=== PATIENT | female | born 2005 | race Caucasian/White ===

== ENCOUNTER 2024-03-11 22:35 | Emergency (ER) | payer OTHER, SELFPAY ==
[2024-03-11 22:36] VITALS: BP 129/80; PULSE 105; RESP 18; TEMP 37; O2SAT 98; BMI 48.8
--- NOTE | 2024-03-11 22:44 | CT_ITS ---
PROCEDURE INFORMATION: Exam: CT Abdomen And Pelvis With Contrast Exam date and time: 03/11/2024 11:33 PM Age: 18 years old Clinical indication: Abdominal pain; Acute; Additional info: Acute abdominal pain TECHNIQUE: Imaging protocol: Computed tomography of the abdomen and pelvis with contrast. Total images: 352 Radiation optimization: All CT scans at this facility use at least one of these dose optimization techniques: automated exposure control; mA and/or kV adjustment per patient size (includes targeted exams where dose is matched to clinical indication); or iterative reconstruction. Contrast material: ISOVUE; Contrast volume: 75 ml; Contrast route: IV; COMPARISON: No relevant prior studies available. FINDINGS: Lungs: Minor bibasilar atelectasis. No concerning infiltrate. Heart: Normal heart size. Liver: Normal. No mass. Gallbladder and bile ducts: Contracted gallbladder. No calcified gallstones. No bile duct dilatation. Pancreas: Normal. No ductal dilation. Spleen: Normal. No splenomegaly. Adrenal glands: Normal. No mass. Kidneys and ureters: No hydronephrosis, nephrolithiasis, or renal mass. Stomach and bowel: Mild gastric distension with recently ingested content. Unremarkable duodenum. No ileus or bowel obstruction. Small bowel appears within normal limits. Submucosal fat deposition within the wall of the ascending colon compatible with remote/chronic disease. Unremarkable rectum. Focal mild wall thickening the sigmoid colon without surrounding inflammatory change. Appendix: Normal appendix. Intraperitoneal space: No ascites. No free air. Vasculature: Abdominal aorta is normal in caliber. Major abdominal vessels enhance appropriately. Lymph nodes: Small benign-appearing bilateral inguinal and femoral lymph nodes. Prominent right lower quadrant mesenteric lymph nodes implying mesenteric adenitis. Normal appendix. Urinary bladder: Collapsed bladder. Reproductive: Physiologic uterus and ovaries. Small quantity free pelvic fluid. Bones/joints: Attenuation artifact limiting bone detail. No acute osseous abnormality. Soft tissues: Diastasis of the rectus fascia. Small fat containing umbilical hernia. IMPRESSION: 1. Focal mild wall thickening of the sigmoid colon without surrounding inflammatory change. This may reflect incomplete distension however cannot exclude minor colitis. No complicating features. 2. Small quantity free pelvic fluid is considered physiologic. 3. Normal appendix. 4. Mesenteric adenitis.
--- NOTE | 2024-03-11 22:44 | ED_ITS ---
<Statement entered by Gianluca Blevins MD - 03/11/24 23:09> I was consulted by the BRIAN, and we discussed the complexity of the problems being addressed. I approved the treatment and management plan for this patient's care in the emergency department, thus performing a substantive portion of the medical decision making. Gianluca Blevins MD Discharge Plan Disposition Patient Disposition: Home, Self-Care Chief Complaint: Urogenital-Female Prescriptions Prescriptions: No Action famotidine 20 mg tablet 20 mg PO Patient Comments: TAKE 1 TABLET BY MOUTH EVERY 12 HOURS FOR 10 DAYS Nexplanon 68 mg implant SUBDERMAL Referrals Follow up/Referrals: Provider,Referral, [Primary Care Provider] - See instructions Activity Restrictions/Add. Instructions Additional Instructions/Restrictions: Please follow-up with your primary care provider. Please return to the emergency department if you develop any new or worsening symptoms or become concerned for your health. Please take Tylenol and ibuprofen as needed for pain. Clinical Impressions Clinical Impression: Acute mesenteric adenitis Stand Alone Forms Stand Alone Forms: Work/School Release Instructions Patient Instructions: DI for Urinary Tract Infection (UTI) Discharge ED Provider: Neel Smith General Adult HPI <JERARDO Robison - Last Filed: 03/11/24 22:51> General Chief complaint: Urogenital-Female Stated complaint: abd pain, unable to urinate Time Seen by Provider: 03/11/24 22:39 History of Present Illness HPI narrative: Patient presents for evaluation of acute abdominal pain. Patient states that her pain began abruptly this evening. She reports it is difficult to void. She is never had anything like this before. She states that the pain is located in the suprapubic area and does not radiate. She denies any vaginal discharge and she is not currently on her period denies chest pain shortness of breath fever chills hemoptysis hematochezia melena nausea vomiting or diarrhea Related Data Home Medications Medication Instructions Recorded Confirmed etonogestrel 68 mg subdermal subdermal 02/13/22 02/13/22 implant (Nexplanon) famotidine 20 mg tablet 20 mg PO 02/13/22 02/13/22 Allergies Allergy/AdvReac Type Severity Reaction Status Date / Time No Known Allergies Allergy Verified 02/13/22 14:42 PFSH <JERARDO Robison - Last Filed: 03/11/24 22:51> PFSH Disclaimer: The information contained in this section may have been updated after the patient was seen, as this information can be updated by other users. Social History Smoking Status: Current every day smoker alcohol intake: never current occupational status: student Travel in the last 8 weeks: None <JERARDO Robison - Last Filed: 03/11/24 22:51> ROS Obtained: Yes Systems reviewed as appropriate & no additional complaints except as documented Physical Exam <JERARDO Robison - Last Filed: 03/11/24 22:51> General General appearance: alert and in no apparent distress Respiratory Respiratory exam: Present normal lung sounds bilaterally Cardiovascular Cardiovascular exam: Present regular rate and normal rhythm Abdominal Exam Abdominal exam: Present soft (Obese), tenderness (Tenderness in the suprapubic area) and normal bowel sounds; Absent guarding, rebound or rigidity Back Exam Back exam: Absent CVA tenderness (R) or CVA tenderness (L) Neurological Exam Neurological exam: Present alert and oriented X3 Medical Decision Making <JERARDO Robison - Last Filed: 03/11/24 22:51> Medical Records Medical records reviewed: Yes I reviewed the patient's medical records. Velasquez Inquiry Pt receiving controlled substance: No Vital Signs: 03/11/24 22:36 Temperature 98.6 F Temperature Source Oral Pulse Rate [Left] 105 H Respiratory Rate 18 Blood Pressure [Right Arm] 129/80 Blood Pressure Mean [Right Arm] 96 Blood Pressure Source [Right Arm] Automatic Cuff Blood Pressure Position [Right Arm] Sitting 02 Sat by Pulse Oximetry 98 Oxygen Delivery Method Room Air Lab Data Lab results reviewed: Yes I reviewed the patient's lab results. Lab Results 03/11/24 22:44: Urine Color Yellow, Urine Appearance Clear, Urine pH 6.0, Ur Specific Dewitt >= 1.030, Urine Protein Negative, Urine Glucose (UA) Negative, Urine Ketones Negative, Urine Blood Negative, Urine Nitrate Negative, Urine Bilirubin Negative, Urine Urobilinogen 1.0, Ur Leukocyte Esterase Negative, Urine RBC 3-5, Urine WBC Occasional, Ur Squamous Epith Cells Occasional, Urine Bacteria Trace 03/11/24 22:51: WBC 10.9, RBC 4.76, Hgb 14.0, Hct 41.6, MCV 87.3, MCH 29.5, MCHC 33.8, RDW 14.8, Plt Count 256, MPV 8.5, Neut % (Auto) 79.7, Lymph % (Auto) 14.8, [place] % (Auto) 3.9, Eos % (Auto) 1.2, Baso % (Auto) 0.3, Neut # (Auto) 8.7 H, Lymph # (Auto) 1.6, [place] # (Auto) 0.4, Eos # (Auto) 0.1, Baso # (Auto) 0.0, Sodium 139, Potassium 3.9, Chloride 102, Carbon Dioxide 28, Anion Gap 12.9, BUN 10, Creatinine 0.90, Estimated Creat Clear 72, Estimated GFR 81, Est GFR ( Amer) 98, Glucose 92, Calcium 8.9, Total Bilirubin 0.9, AST 28, ALT 28, Alkaline Phosphatase 74, Total Protein 7.7, Albumin 4.1, Globulin 3.6 H, Albumin/Globulin Ratio 1.1, Serum HCG, Qual Negative 03/11/24 22:51 03/11/24 22:51 Orders (Tests/Meds): ED MEDICATIONS Generic Name Dose Route Start Last Admin Trade Name Freq PRN Reason Stop Dose Admin Sodium Chloride 10 ml 03/11/24 23:30 03/11/24 23:35 Sodium Chloride 0.9% 10ml Syr (Rad Only) IV 04/10/24 23:29 10 ml NEEDED PRN Administration Maintain IV Site Discontinued Medications Generic Name Dose Route Start Last Admin Trade Name Freq PRN Reason Stop Dose Admin Acetaminophen 1,000 mg 03/11/24 22:44 03/11/24 22:55 Acetaminophen 1,000mg/100ml Vial IV 03/11/24 22:45 1,000 mg ONCE ONE Administration Lactated Ringer's 1,000 mls @ 999 mls/hr 03/11/24 22:44 03/11/24 22:56 Lactated Ringer's 1000 Ml Bag IV 03/11/24 23:44 999 mls/hr .Q1H1M ONE Administration Iopamidol 75 ml 03/11/24 23:30 03/11/24 23:35 Iopamidol-370 (76%);100ml Bottle IV 03/11/24 23:31 75 ml ONCE ONE Administration Ketorolac Tromethamine 15 mg 03/11/24 22:44 03/11/24 22:55 Ketorolac 30mg/Ml Vial IV 03/11/24 22:45 15 mg ONCE ONE Administration ORDERS Category Date Time Status CT abdomen pelvis w con Stat Cat Scan 03/11/24 22:44 Completed CBC w/Auto Diff [Complete Blood Count Auto Diff] Stat Lab 03/11/24 22:51 Completed CMP [Comprehensive Metabolic Panel] Stat Lab 03/11/24 22:51 Completed HCG Qualitative, Serum Stat Lab 03/11/24 22:51 Completed UA [Urinalysis and Microscopic] Stat Lab 03/11/24 22:44 Completed Medical Decision Narrative: In summary patient is a 18-year-old female who presents to the emergency department for evaluation of abdominal pain and dysuria. Patient is hemodynamically stable upon arrival, afebrile. Physical exam is remarkable for lower quadrant/suprapubic pain to palpation with negative CVA tenderness to percussion bilaterally no tenderness over McBurney's point. Differential diagnosis includes cystitis versus urinary tract infection versus vaginitis versus constipation versus kidney stone versus appendicitis versus ovarian torsion etc. Initial workup will be conducted with hematologic labs CT scan abdomen pelvis urinalysis continuous cardiac monitoring and pulse oximetry. Initial interventions include crystalloid bolus Toradol Tylenol. Initial workup started and pending at the time of handoff to Dr. Smith at 2300 hrs. <Neel Smith MD - Last Filed: 03/12/24 00:53> Vital Signs: 03/11/24 22:36 Temperature 98.6 F Temperature Source Oral Pulse Rate [Left] 105 H Respiratory Rate 18 Blood Pressure [Right Arm] 129/80 Blood Pressure Mean [Right Arm] 96 Blood Pressure Source [Right Arm] Automatic Cuff Blood Pressure Position [Right Arm] Sitting 02 Sat by Pulse Oximetry 98 Oxygen Delivery Method Room Air Lab Data Lab Results 03/11/24 22:44: Urine Color Yellow, Urine Appearance Clear, Urine pH 6.0, Ur Specific Dewitt >= 1.030, Urine Protein Negative, Urine Glucose (UA) Negative, Urine Ketones Negative, Urine Blood Negative, Urine Nitrate Negative, Urine Bilirubin Negative, Urine Urobilinogen 1.0, Ur Leukocyte Esterase Negative, Urine RBC 3-5, Urine WBC Occasional, Ur Squamous Epith Cells Occasional, Urine Bacteria Trace 03/11/24 22:51: WBC 10.9, RBC 4.76, Hgb 14.0, Hct 41.6, MCV 87.3, MCH 29.5, MCHC 33.8, RDW 14.8, Plt Count 256, MPV 8.5, Neut % (Auto) 79.7, Lymph % (Auto) 14.8, [place] % (Auto) 3.9, Eos % (Auto) 1.2, Baso % (Auto) 0.3, Neut # (Auto) 8.7 H, Lymph # (Auto) 1.6, [place] # (Auto) 0.4, Eos # (Auto) 0.1, Baso # (Auto) 0.0, Sodium 139, Potassium 3.9, Chloride 102, Carbon Dioxide 28, Anion Gap 12.9, BUN 10, Creatinine 0.90, Estimated Creat Clear 72, Estimated GFR 81, Est GFR ( Amer) 98, Glucose 92, Calcium 8.9, Total Bilirubin 0.9, AST 28, ALT 28, Alkaline Phosphatase 74, Total Protein 7.7, Albumin 4.1, Globulin 3.6 H, Albumin/Globulin Ratio 1.1, Serum HCG, Qual Negative Orders (Tests/Meds): ED MEDICATIONS Generic Name Dose Route Start Last Admin Trade Name Freq PRN Reason Stop Dose Admin Sodium Chloride 10 ml 03/11/24 23:30 03/11/24 23:35 Sodium Chloride 0.9% 10ml Syr (Rad Only) IV 04/10/24 23:29 10 ml NEEDED PRN Administration Maintain IV Site Discontinued Medications Generic Name Dose Route Start Last Admin Trade Name Freq PRN Reason Stop Dose Admin Acetaminophen 1,000 mg 03/11/24 22:44 03/11/24 22:55 Acetaminophen 1,000mg/100ml Vial IV 03/11/24 22:45 1,000 mg ONCE ONE Administration Lactated Ringer's 1,000 mls @ 999 mls/hr 03/11/24 22:44 03/11/24 22:56 Lactated Ringer's 1000 Ml Bag IV 03/11/24 23:44 999 mls/hr .Q1H1M ONE Administration Iopamidol 75 ml 03/11/24 23:30 03/11/24 23:35 Iopamidol-370 (76%);100ml Bottle IV 03/11/24 23:31 75 ml ONCE ONE Administration Ketorolac Tromethamine 15 mg 03/11/24 22:44 03/11/24 22:55 Ketorolac 30mg/Ml Vial IV 03/11/24 22:45 15 mg ONCE ONE Administration ORDERS Category Date Time Status CT abdomen pelvis w con Stat Cat Scan 03/11/24 22:44 Completed CBC w/Auto Diff [Complete Blood Count Auto Diff] Stat Lab 03/11/24 22:51 Completed CMP [Comprehensive Metabolic Panel] Stat Lab 03/11/24 22:51 Completed HCG Qualitative, Serum Stat Lab 03/11/24 22:51 Completed UA [Urinalysis and Microscopic] Stat Lab 03/11/24 22:44 Completed Medical Decision Narrative: In summary patient is a 18-year-old female who presents to the emergency department for evaluation of abdominal pain and dysuria. Patient is hemodynamically stable upon arrival, afebrile. Physical exam is remarkable for lower quadrant/suprapubic pain to palpation with negative CVA tenderness to percussion bilaterally no tenderness over McBurney's point. Differential diagnosis includes cystitis versus urinary tract infection versus vaginitis versus constipation versus kidney stone versus appendicitis versus ovarian torsion etc. Initial workup will be conducted with hematologic labs CT scan abdomen pelvis urinalysis continuous cardiac monitoring and pulse oximetry. Initial interventions include crystalloid bolus Toradol Tylenol. Initial workup started and pending at the time of handoff to Dr. Smith at 2300 hrs. Sarah BHATIA: I assumed care of the patient at the time of handoff from the prior provider. On reassessment patient reports symptomatic improvement. Laboratory results show no leukocytosis, no significant electrolyte derangement, normal renal function, negative test. Urinalysis is not consistent with infection. CT imaging independently interpreted by me shows prominent mesenteric lymph nodes within normal appendix, unremarkable ovaries, no kidney stones. Interactive discussion was had with the patient regarding her presentation. At this time her presentation is most consistent with mesenteric adenitis. Patient was discharged in stable condition with return precautions and instructions regarding symptomatic care. I was consulted by the BRIAN, and we discussed the complexity of the problems being addressed. I approved the treatment and management plan for this patient?s care in the Emergency Department, thus performing a substantive portion of the medical decision making. Neel Smith MD Critical Care <JERARDO Robison - Last Filed: 03/11/24 22:51> Critical Care Time Critical Care Time: No
[2024-03-11 22:49] LABS: Microscopic, Urine URINE MICROSCOPIC (MICROSCOPIC)
[2024-03-11] MEDS: ACETAMINOPHEN 1,000MG/100ML VIAL 1000 MG IV (22:55)
[2024-03-11] MEDS: KETOROLAC 30MG/ML VIAL 15 MG IV (22:55)
[2024-03-11] MEDS: LACTATED RINGERS 1000ML 1,000 ML 999 ML IV (22:56)
[2024-03-11 22:59] LABS: Appearance,Urine CLEAR (Clear); Bilirubin,Urine Negative (Negative); Blood, Urine Negative (Negative); Color,Urine YELLOW (Yellow); Glucose,Urine (UA) Negative (Negative); Ketones,Urine Negative (Negative); Leukocyte Esterase,Urine Negative (Negative); Nitrate,Urine Negative (Negative); Protein,Urine Negative (Negative); Specific Gravity, Urine >= 1.030 (1.005-1.030)
[2024-03-11 23:00] LABS: Basophils % 0.3 % (0.1-2.0); Eosinophils # 0.1 K/mm3 (0.0-0.4); Eosinophils % 1.2 % (0.1-12.0); Hematocrit 41.6 % (37.0-47.0); Lymphocytes # 1.6 K/mm3 (0.7-4.5); Lymphocytes % 14.8 % (10-50); Mean Corpuscular HGB Conc 33.8 g/dL (31.8-35.4); Mean Corpuscular Hemoglobin 29.5 pg (27.0-31.2); Mean Corpuscular Volume 87.3 fl (81-99); Mean Platelet Volume 8.5 fl (7.4-10.4); Monocytes # 0.4 K/mm3 (0.1-1.0); Monocytes % 3.9 % (1.7-9.3); Neutrophils # 8.7 K/mm3 (1.8-7.8); Neutrophils % 79.7 % (37.0-80.0); Platelet Count 256 K/mm3 (142-424); Red Blood Count 4.76 M/mm3 (4.20-5.40); Red Cell Distribution Width 14.8 % (11.5-17.5); White Blood Count 10.9 K/mm3 (4.5-13.0)
[2024-03-11 23:11] LABS: Bacteria,Urine Trace /lpf; Squamous Epithelial Cell,Urine Occasional #/hpf (0-5); WBC,Urine Occasional #/hpf (0-3)
[2024-03-11 23:16] LABS: Chloride 102 mmol/L (98-107); Potassium 3.9 mmoL/L (3.5-5.1); Sodium 139 mmol/L (136-145)
[2024-03-11 23:19] LABS: Alanine Aminotransferase 28 U/L (12-78); Albumin Level 4.1 g/dl (3.5-5.0); Albumin/Globulin Ratio 1.1 (1.1-1.8); Alkaline Phosphatase 74 U/L (38-126); Anion Gap 12.9 mEq/L (5-15); Aspartate Amino Transferase 28 U/L (14-36); Bilirubin,Total 0.9 mg/dl (0.2-1.3); Blood Urea Nitrogen 10 mg/dl (7-17); Calcium 8.9 mg/dl (8.4-10.2); Carbon Dioxide 28 mmol/L (22.0-30.0); Creatinine Clearance Estimated 72 mL/min (50-200); Estimated Glomerular Filt Rate 81 ml/min (>60); GFR (African American) 98 ML/MIN (>60); Globulin 3.6 g/dL (1.3-3.2); Glucose 92 mg/dl (74-100); Total Protein,Serum 7.7 g/dl (6.3-8.2)
[2024-03-11 23:22] LABS: HCG Qualitative, Serum Negative (Negative)
[2024-03-11] MEDS: IOPAMIDOL-370 (76%);100ML BOTTLE 75 ML IV (23:35)
[2024-03-11] MEDS: SODIUM CHLORIDE 0.9% 10ML SYR (RAD ONLY) 10 ML IV (23:35)
[2024-03-12 00:52] VITALS: BP 119/73; PULSE 78; RESP 18; TEMP 37; O2SAT 97
== END 2024-03-12 00:52 | disposition home or self-care (01) ==
PROVIDERS: Physician Assistant; Emergency Provider Emergency Medicine
DX: I88.0 Nonspecific mesenteric lymphadenitis (principal); R10.30 Lower abdominal pain, unspecified; F17.210 Nicotine dependence, cigarettes, uncomplicated
CPT/HCPCS: 74177; 80053; 81001; 84703; 85025; 96361; 96374; 96375; 99284; J0131; J7120; Q9967

== ENCOUNTER 2024-10-21 09:13 | Emergency (ER) | payer OTHER, SELFPAY ==
[2024-10-21] VITALS (12 sets, daily range): BP systolic 117–205; BP diastolic 63–175; PULSE 66–113; RESP 14–16; TEMP 36.5–36.6; O2SAT 82–97; BMI 51.1
[2024-10-21 10:13] LABS: Microscopic, Urine URINE MICROSCOPIC (MICROSCOPIC)
[2024-10-21] MEDS: IBUPROFEN 600 MG TABLET PO (10:15)
[2024-10-21] MEDS: DEXAMETHASONE 4MG TABLET 10 MG PO (10:15)
[2024-10-21] MEDS: ACETAMINOPHEN 500MG TAB 1000 MG PO (10:15)
[2024-10-21] MEDS: METHOCARBAMOL 500MG TABLET 1500 MG PO (10:16)
[2024-10-21] MEDS: LIDOCAINE 5% TRANSDERMAL PATCH 1 EACH TP (10:16)
[2024-10-21 10:22] LABS: Appearance,Urine CLEAR (Clear); Bilirubin,Urine Negative (Negative); Blood, Urine Negative (Negative); Color,Urine YELLOW (Yellow); Glucose,Urine (UA) Negative (Negative); Ketones,Urine Negative (Negative); Leukocyte Esterase,Urine Negative (Negative); Nitrate,Urine Negative (Negative); PH,Urine 5.5 (5.0-8.5); Protein,Urine Negative (Negative); Specific Gravity, Urine >= 1.030 (1.005-1.030); Urobilinogen,Urine 0.2 EU/dl (0.2)
--- NOTE | 2024-10-21 10:24 | HMH.EDGENADL ---
Discharge Plan Disposition Patient Disposition: Home, Self-Care Prescriptions Prescriptions: New prednisone 20 mg tablet 40 mg PO DAILY 5 Days Qty: 10 0RF methocarbamol 750 mg tablet 1,500 mg PO TID 5 Days Qty: 30 0RF lidocaine 5 % adhesive patch,medicated 1 patch topical DAILY Qty: 30 0RF Rx Instructions: leave on most painful area for up to 12 hrs No Action metronidazole 500 mg tablet 500 mg PO BID 7 Days Qty: 14 0RF Referrals Follow up/Referrals: Bartolo Ordaz MD [Staff Physician] - See instructions Heena Cash PA [Primary Care Provider] - See instructions Activity Restrictions/Add. Instructions Additional Instructions/Restrictions: Call your family doctor to establish care for this visit to the emergency department and schedule follow-up within 48 hours to ensure improvement. If you have any worsening of your condition or any other concerning signs or symptoms, return to the emergency department or your primary care doctor for further evaluation. Call Dr. Ordaz's office in order to schedule follow-up. Steroid each morning for the next 5 days. Clinical Impressions Clinical Impression: Acute lumbar radiculopathy Stand Alone Forms Stand Alone Forms: Work/School Release Instructions Patient Instructions: DI for Low Back Pain Print Language Print Language: Albanian Discharge ED Provider: Regino Murphy General Adult HPI General Chief complaint: Back Pain/Injury Stated complaint: back pain, no accident Time Seen by Provider: 10/21/24 09:23 Mode of Arrival: Ambulatory Source of Information: Patient Limitations: No Limitations Description of Symptoms (Recalled from ER Triage Doc. by RN): pt states she has chronic back pain and was told by her chiropracter that she has a pinched nerve and slipped disc. pt states she is having bilateral lower back pain that radiates medially and proximal. pt states her pain has been worse over the last 2d. pt states her pain is a 7/10 and shooting in nature. pt has not taken anything for the pain today. pt denies urinary symptoms, SOA, or N/V/D. History of Present Illness HPI narrative: Please note that above description of symptoms, in this electronic medical record under categorization of recalled from ER triage doctor by RN are reflective of an initial nursing assessment, however, is not reflective of my full history and physical exam that was personally taken and clarified. Consequentially, this preceding description of symptoms, which may include the patient's categorized chief complaint in the EMR, do not reflect my personal clinical impression, and the ultimate description of history of present illness and patient stated complaints should be deferred to this section of the note. Unless stated otherwise or congruent with this section of the note, additional signs, symptoms, or incongruence should be interpreted as inaccurate with my clinical impression. Related Data Previous Rx's ?Medication ?Instructions ?Recorded metronidazole 500 mg tablet 500 mg PO BID 7 days #14 tabs 08/17/24 lidocaine 5 % topical patch 1 patch topical DAILY #30 ea 10/21/24 methocarbamol 750 mg tablet 1,500 mg (2 x 750 mg) PO TID 5 10/21/24 days #30 tabs prednisone 20 mg tablet 40 mg (2 x 20 mg) PO DAILY 5 days 10/21/24 #10 tabs Allergies Allergy/AdvReac Type Severity Reaction Status Date / Time No Known Allergies Allergy Verified 10/21/24 09:35 [facility] Disclaimer: The information contained in this section may have been updated after the patient was seen, as this information can be updated by other users. Medical History (Updated 10/21/24 @ 11:15 by Regino Murphy MD) Vaginal discharge Dyspareunia No significant medical problems Surgical History (Updated 08/12/24 @ 15:26 by CONNER Jamison) No history of previous surgery Family History (Updated 08/12/24 @ 15:28 by CONNER Jamison) Other Cancer Diabetes FHx: mental illness Hypertension Substance abuse Thyroid disorder Social History Smoking Status: Current every day smoker alcohol intake: never current occupational status: student Travel in the last 8 weeks: None Have you lived/traveled outside US in past 30 days?: No Contact w/someone who lives/traveled outside US past 30 days?: No Exposure to someone with infectious disease in past 14 days?: No Do you have a fever (greater than 100.4 F or 38 C)?: No Have you tested positive for COVID-19: No Exposed to someone with COVID-19 in past 14 days?: No Do you have a sore throat?: No Do you have a cough?: No Do you have any weakness?: No Do you have any diarrhea?: No Are you experiencing any unusual bleeding?: No Do you have any muscle aches/pain?: No Do you have any abdominal pain?: No Are you experiencing loss of taste or smell?: No Other Medical History Have you received the Flu Vaccine for this season: Yes Have you received the Pneumonia Vaccine: No ROS Obtained: Yes All systems reviewed & no additional complaints except as documented Physical Exam General General appearance: alert, in distress (Mild distress secondary to pain. Seems to be spasming) and obese Head Head exam: atraumatic and normocephalic Eye Eye exam: Present normal appearance, PERRL and EOMI Neck Neck exam: Present normal inspection, full ROM and trachea midline Respiratory Respiratory exam: Absent respiratory distress, wheezes, stridor, accessory muscle use or prolonged expiratory phase Cardiovascular Cardiovascular exam: Present other (Pulses equal symmetric in upper and lower extremities) Abdominal Exam Abdominal exam: Present soft; Absent distention, tenderness or pulsatile mass Extremities Exam Extremities exam: Absent edema Back Exam Back exam: Present tenderness, paraspinal tenderness and vertebral tenderness Neurological Exam Neurological exam: Present alert, oriented X3 and CN II-XII intact; Absent motor sensory deficit Skin Skin exam: Present warm and dry; Absent diaphoresis or erythema Medical Decision Making Medical Records Medical records reviewed: Yes I reviewed the patient's medical records. Screening: Per USPSTF and CDC recommendations, given the prevalence of disease in our region, it is our hospital?s policy to screen for HIV and viral Hepatitis for all patients aged 18 and over and those with ongoing risk factors. Velasquez Inquiry Pt receiving controlled substance: No Velasquez was queried for this patient: No Vital Signs: 10/21/24 09:22 10/21/24 09:25 10/21/24 09:30 Temperature 97.7 F Temperature Source Oral Pulse Rate 66 113 H Pulse Rate [Left] 110 H Respiratory Rate 14 Blood Pressure Blood Pressure [Right Arm] 147/95 H Blood Pressure Mean Blood Pressure Mean [Right Arm] 112 Blood Pressure Source [Right Arm] Automatic Cuff Blood Pressure Position [Right Arm] Sitting 02 Sat by Pulse Oximetry 82 L 96 96 Oxygen Delivery Method Room Air 10/21/24 09:32 10/21/24 09:36 10/21/24 09:52 Temperature Temperature Source Pulse Rate 109 H 101 H 92 H Pulse Rate [Left] Respiratory Rate Blood Pressure 205/175 H 200/163 H 157/86 H Blood Pressure [Right Arm] Blood Pressure Mean Blood Pressure Mean [Right Arm] Blood Pressure Source [Right Arm] Blood Pressure Position [Right Arm] 02 Sat by Pulse Oximetry 96 97 97 Oxygen Delivery Method Room Air 10/21/24 10:01 10/21/24 10:15 10/21/24 10:30 Temperature Temperature Source Pulse Rate 105 H 97 H 92 H Pulse Rate [Left] Respiratory Rate Blood Pressure 117/87 131/63 122/68 Blood Pressure [Right Arm] Blood Pressure Mean 84 Blood Pressure Mean [Right Arm] Blood Pressure Source [Right Arm] Blood Pressure Position [Right Arm] 02 Sat by Pulse Oximetry 96 95 96 Oxygen Delivery Method Room Air Room Air Room Air 10/21/24 10:45 10/21/24 11:00 Temperature Temperature Source Pulse Rate 97 H 92 H Pulse Rate [Left] Respiratory Rate Blood Pressure 121/99 H 125/85 Blood Pressure [Right Arm] Blood Pressure Mean 106 98 Blood Pressure Mean [Right Arm] Blood Pressure Source [Right Arm] Blood Pressure Position [Right Arm] 02 Sat by Pulse Oximetry 95 96 Oxygen Delivery Method Room Air Room Air Lab Data Lab Results 10/21/24 09:20: Urine Color Yellow, Urine Appearance Clear, Urine pH 5.5, Ur Specific West[place] >= 1.030, Urine Protein Negative, Urine Glucose (UA) Negative, Urine Ketones Negative, Urine Blood Negative, Urine Nitrate Negative, Urine Bilirubin Negative, Urine Urobilinogen 0.2, Ur Leukocyte Esterase Negative Orders (Tests/Meds): ED MEDICATIONS Discontinued Medications Generic Name Dose Route Start Last Admin Trade Name Mukeshq PRN Reason Stop Dose Admin Acetaminophen 1,000 mg 10/21/24 10:09 10/21/24 10:15 Acetaminophen 500mg Tab PO 10/21/24 10:10 1,000 mg ONCE ONE Administration Dexamethasone 10 mg 10/21/24 10:09 10/21/24 10:15 Dexamethasone 4mg Tablet PO 10/21/24 10:10 10 mg ONCE ONE Administration Ibuprofen 600 mg 10/21/24 10:09 10/21/24 10:15 Ibuprofen 600 Mg Tablet PO 10/21/24 10:10 600 mg ONCE ONE Administration Lidocaine 1 each 10/21/24 10:09 10/21/24 10:16 Lidocaine 5% Transdermal Patch TP 10/21/24 10:10 1 each ONCE ONE Administration Methocarbamol 1,500 mg 10/21/24 10:09 10/21/24 10:16 Methocarbamol 500mg Tablet PO 10/21/24 10:10 1,500 mg ONCE ONE Administration ORDERS Category Date Time Status UA [Urinalysis and Microscopic] Stat Lab 10/21/24 09:20 Results Medical Decision Narrative: 19-year-old female with history of degenerative disc disease presenting with back pain. Patient states that she has had chronic back pain, seems to have been having a flareup for the last 2 days. States that its gotten worse over the past couple days. Has not taken anything to make it better. No other systemic signs or symptoms, no vomiting, flank pain, urinary symptoms, bowel changes, etc. No loss of function of bowel or bladder, no lower extremity weakness, generally just right-sided pain that flares. History was obtained via conversation with patient. On arrival, patient hemodynamically stable, alert, oriented x4, appropriate, GCS 15, moving all extremities spontaneously, pupils equal and reactive to light. Full physical exam performed and significant for obese female mild distress secondary to the intermittent flareups of pain. Some midline spinal tenderness, but primarily on the right side paraspinal muscles that appear tense. She states that the pain is shooting down into her right buttock and right leg.. Differential includes radiculopathy, radiculitis, disc herniation, nephrolithiasis, pyelonephritis, among others. Patient was given acetaminophen, ibuprofen, lidocaine patch, Robaxin, steroid for symptomatic management and correction of underlying abnormalities. Workup independently interpreted and significant for nonactionable urine. On reevaluation, patient actually laying flat in bed and states she feels a little better. Given patient presentation, workup, history, this most likely represents musculoskeletal spasm in the setting of lumbar radiculopathy. Because patient at baseline without signs or symptoms of clinical decompensation, deemed appropriate for discharge. Results were relayed to patient who voiced understanding and were agreeable to outpatient management and follow up. I discussed my clinical impression with patient and answered all questions. At this time, the evidence for any other entities in the differential is insufficient to warrant any further testing or ED observation. This was explained as well. Advisory was given that persistent or worsening symptoms require further evaluation. I confirmed the understanding of this discussion. Mortgage Protection Specialist disclaimer Much of this encounter note is an electronic probation worker spoken language to printed text. Electronic probation worker of the spoken language may permit errors. Although I have reviewed the note, some errors may still exist. Critical Care Critical Care Time Critical Care Time: No
[2024-10-21 11:25] LABS: Bacteria,Urine Trace /lpf
== END 2024-10-21 11:20 | disposition home or self-care (01) ==
PROVIDERS: Emergency Provider Emergency Medicine; PCP Physician Assistant
DX: M54.16 Radiculopathy, lumbar region (principal); M54.9 Dorsalgia, unspecified
CPT/HCPCS: 81001; 99283; J8540

== ENCOUNTER 2025-06-30 10:21 | Outpatient (CLI) | payer OTHER, SELFPAY ==
--- OUTSIDE RECORDS SUMMARY | 2025-05-17 15:40 | XMS_ITS | Encounter Summary ---
Author Organization Healthcare Address [address] [place] [address] Care Team Providers Care Measurement Supervisor Name Role Phone ShaileshHeena JERARDO Primary Care Provider [phone] Encounter Details Date Type Department Care Team (Latest Contact Info) Description 05/17/2025 3:40 PM EDT - 05/17/2025 3:41 PM EDT [facility] [address], [address] [place] [id number] Chronic bilateral low back pain with left-sided sciatica; Degeneration of intervertebral disc of lumbar region with discogenic back pain and lower extremity pain; Herniated nucleus pulposus, thoracic Discharge Disposition: Home or Self Care Social History Tobacco Use Types Packs/Day Years Used Date Smoking Tobacco: Never Passive Smoke Exposure: Current Smokeless Tobacco: Never Comments:Vape Alcohol Use Standard Drinks/Week Comments Not Currently 0 (1 standard drink = 0.6 oz pur e alcohol) Occassionally PHQ-2 Answer Date Recorded Patient Health Questionnaire-2 Score 0 05/17/2025 Comments Unknown Sex and Gender Information Value Date Recorded Sex Assigned at Female 03/18/2025 8:25 AM EDT Legal Sex Female 8:34 PM EDT Gender Identity Not on file Sexual Orientation Not on file documented as of this encounter Functional Status * Over the past 2 weeks, how often have you been bothered by any of the following problems? Question Answer Date of Assessment Author Little interest or pleasure in doing things Not at all 05/17/2025 4:07 PM EDT Kareem Puente Feeling down, depressed, or hopeless Not at all 05/07 4:07 PM EDT Kareem Puente Patient Health Questionnaire-2 Score 0 05/07 4:07 PM EDT Kareem Puente documented as of this encounter Medications at Time of Discharge cholecalciferol (Vitamin D-3) 50 MCG (1999 UT) capsule Take 1 capsule by mouth daily. 10/09/2024 ergocalciferol 1.25 MG (96776 UT) capsule Take 1 capsule by mouth 1 time per week. 10/08/2024 fluticasone (Flonase) 50 MCG/ACT nasal spray 08/16/2024 meloxicam (Mobic) 15 MG tabletIndications: Chronic bilateral low back pain with left-sided sciatica Take 1 tablet by mouth daily. 30 tablet 2 04/08/2025 methylPREDNISolone (Medrol Dospak) 4 MG tablets Take as directed. 1 each 03/18/2025 silver sulfADIAZINE (Silvadene) 1 % cream APPLY A 1.5 MILLIMETER THICK LAYER OF CREAM TOPICALLY TO ENTIRE BURN AREA TWICE DAILY 03/12/2025 traMADol (Ultram) 50 MG tablet TAKE 1 TABLET BY MOUTH EVERY 4 HOURS NEEDED FOR PAIN (MAXIMUM OF 4 TABLETS PER DAY) 02/09/2025 documented as of this encounter Plan of Treatment Not on file documented as of this encounter Procedures Procedure Name Priority Date/Time Associated Diagnosis Comments XR LUMBAR SPINE 2 OR 3 VIEWS Routine 05/17/2025 3:59 PM EDT Chronic bilateral low back pain with left-sided sciatica Degeneration of intervertebral disc of lumbar region with discogenic back pain and lower extremity pain Herniated nucleus pulposus, thoracic XR SCOLIOSIS ENTIRE SPINE 2 OR 3 VIEWS Routine 05/17/2025 3:58 PM EDT Chronic bilateral low back pain with left-sided sciatica Degeneration of intervertebral disc of lumbar region with discogenic back pain and lower extremity pain Herniated nucleus pulposus, thoracic documented in this encounter Results * XR Lumbar Spine 2 or 3 Views (05/17/2025 3:59 PM EDT) Anatomical Region Laterality Modality Spine, L-spine Digital Radiogra phy Impressions 05/17/2025 4:05 PM EDT Minimal S-shaped curve of the thoracic and lumbar spine without degenerative disc changes or lumbar instability. CRITICAL RESULT: No. COMMUNICATION: Per this written report. Drafted by Slade Quintero MD on 05/17/2025 4:03 PM Final report signed by Slade Quintero MD on 05/17/2025 4:05 PM Narrative 05/17/2025 4:05 PM EDT CLINICAL INDICATION: low back pain TECHNIQUE: XR LUMBAR SPINE 2 OR 3 VIEWS, XR SCOLIOSIS ENTIRE SPINE 2 OR 3 VIEWS COMPARISON: None. FINDINGS: 2 views of the lumbar spine show normal disc height and vertebral alignment. No instability in flexion or extension. No fracture or bone destruction. 2 views of the spine show slight levoconvex curve with the apex at T6 and minimal dextroconvex curve with the apex at T12. Coronal balance is neutral. Sagittal balance is negative. Suboptimal evaluation of the upper cervical spine due to overexposure. No fracture or bone destruction. Sacroiliac joints are normal. Lungs are clear. Cardiac silhouette is appropriate in size and configuration. Procedure Note Slade Quintero MD - 05/17/2025 CLINICAL INDICATION: low back pain TECHNIQUE: XR LUMBAR SPINE 2 OR 3 VIEWS, XR SCOLIOSIS ENTIRE SPINE 2 OR 3 VIEWS COMPARISON: None. FINDINGS: 2 views of the lumbar spine show normal disc height and vertebralalignment. No instability in flexion or extension. No fracture or bonedestruction. 2 views of the spine show slight levoconvex curve with the apex at T6 andminimal dextroconvex curve with the apex at T12. Coronal balance isneutral. Sagittal balance is negative. Suboptimal evaluation of the uppercervical spine due to overexposure. No fracture or bone destruction.Sacroiliac joints are normal. Lungs are clear. Cardiac silhouette isappropriate in size and configuration. IMPRESSION: Minimal S-shaped curve of the thoracic and lumbar spine withoutdegenerative disc changes or lumbar instability. CRITICAL RESULT: No. COMMUNICATION: Per this written report. Drafted by Slade Quintero MD on 05/17/2025 4:03 PM Final report signed by Slade Quintero MD on 05/17/2025 4:05 PM Rhoda KURTZ IMG XR PROCEDURES Final Result * XR Scoliosis Entire Spine 2 or 3 Views (05/17/2025 3:58 PM EDT) Anatomical Region Laterality Modality Spine Digital Radiogra phy Impressions 05/17/2025 4:05 PM EDT Minimal S-shaped curve of the thoracic and lumbar spine without degenerative disc changes or lumbar instability. CRITICAL RESULT: No. COMMUNICATION: Per this written report. Drafted by Slade Quintero MD on 05/17/2025 4:03 PM Final report signed by Slade Quintero MD on 05/17/2025 4:05 PM Narrative 05/17/2025 4:05 PM EDT CLINICAL INDICATION: low back pain TECHNIQUE: XR LUMBAR SPINE 2 OR 3 VIEWS, XR SCOLIOSIS ENTIRE SPINE 2 OR 3 VIEWS COMPARISON: None. FINDINGS: 2 views of the lumbar spine show normal disc height and vertebral alignment. No instability in flexion or extension. No fracture or bone destruction. 2 views of the spine show slight levoconvex curve with the apex at T6 and minimal dextroconvex curve with the apex at T12. Coronal balance is neutral. Sagittal balance is negative. Suboptimal evaluation of the upper cervical spine due to overexposure. No fracture or bone destruction. Sacroiliac joints are normal. Lungs are clear. Cardiac silhouette is appropriate in size and configuration. Procedure Note Slade Quintero MD - 05/17/2025 CLINICAL INDICATION: low back pain TECHNIQUE: XR LUMBAR SPINE 2 OR 3 VIEWS, XR SCOLIOSIS ENTIRE SPINE 2 OR 3 VIEWS COMPARISON: None. FINDINGS: 2 views of the lumbar spine show normal disc height and vertebralalignment. No instability in flexion or extension. No fracture or bonedestruction. 2 views of the spine show slight levoconvex curve with the apex at T6 andminimal dextroconvex curve with the apex at T12. Coronal balance isneutral. Sagittal balance is negative. Suboptimal evaluation of the uppercervical spine due to overexposure. No fracture or bone destruction.Sacroiliac joints are normal. Lungs are clear. Cardiac silhouette isappropriate in size and configuration. IMPRESSION: Minimal S-shaped curve of the thoracic and lumbar spine withoutdegenerative disc changes or lumbar instability. CRITICAL RESULT: No. COMMUNICATION: Per this written report. Drafted by Slade Quintero MD on 05/17/2025 4:03 PM Final report signed by Slade Quintero MD on 05/17/2025 4:05 PM Rhoda KURTZ IMG XR PROCEDURES Final Result documented in this encounter Visit Diagnoses Diagnosis Chronic bilateral low back pain with left-sided sciatica Degeneration of intervertebral disc of lumbar region with discogenic back pain and lower extremity pain Herniated nucleus pulposus, thoracic Displacement of thoracic intervertebral disc without myelopathy documented in this encounter Additional Health Concerns Assessment Noted Time A fall risk assessment has been complete d for the patient 05/17/2025 4:07 PM EDT A Body Mass Index follow-up plan has been documented for the patient 05/18/2025 1:06 PM EDT documented as of this encounter Care Teams Measurement Supervisor Relationship Specialty Start Date End Date Heena Cash PA [address] [place] [address] PCP - General 04/30/25 documented as of this encounter
--- OUTSIDE RECORDS SUMMARY | 2025-05-17 15:42 | XMS_ITS | Encounter Summary ---
Author Organization Healthcare Address [address] [id number] Care Team Providers Care Distribution Clerk Name Role Phone ShaileshHeena Nael KURTZ Primary Care Provider [phone] Encounter Details Date Type Department Care Team (Latest Contact Info) Description 05/17/2025 3:42 PM EDT - 05/17/2025 11:59 PM EDT [facility] En[facility] [address], [address] [place] [id number] Discharge Disposition: Home or Self Care Social [...] by mouth daily. 10/09/2024 ergocalciferol 1.25 MG (68002 UT) capsule Take 1 capsule by mouth 1 time per week. 10/08/2024 fluticasone (Flonase) 50 MCG/ACT nasal spray 08/16/2024 meloxicam (Mobic) 15 MG tabletIndications: Chronic bilateral low back pain with left-sided sciatica Take 1 tablet by mouth daily. 30 tablet 2 04/08/2025 metFORMIN XR (Glucophage-XR) 500 MG 24 hr tablet Take 1 tablet by mouth 1 time each day with dinner. 05/17/2025 methylPREDNISolone (Medrol Dospak) 4 MG tablets Take [...] Result documented in this encounter Visit Diagnoses Not on filedocumented in this encounter Additional Health Concerns Assessment Noted Time A fall risk assessment has been complete d for the patient 05/17/2025 4:07 PM EDT A Body Mass Index follow-up plan has been documented for the patient 05/18/2025 1:06 PM EDT documented as of this encounter Care Teams Distribution Clerk Relationship Specialty Start Date End Date Heena Cash PA [address] [place] [address] PCP - General 04/30/25 documented as of this encounter
--- OUTSIDE RECORDS SUMMARY | 2025-05-17 16:00 | XMS_ITS | Encounter Summary ---
Author Organization [facility] Address [address] [place] [address] Care Team Providers Care Jailer/Training Officer Name Role Phone Heena Cash Primary Care Provider [phone] Reason for Referral * Consultation (Routine) - Authorized Specialty Diagnoses / Procedures Referred By Contjessica t Referred To Contact Pain Medicine Diagnoses Chronic bilateral low back pain with left-sided sciatica Nam Emanuel MD [address] [address] Phone: tel: fax: [facility] Interventional Pain Medicine [address] [facility] [place] [address] Phone: tel: fax: Referral ID Status Reason Start Date Expiration Date Visits Requested Visits Authorized [id number] Authorized Perform Procedure 05/17/2025 11/16/2026 1 1 Encounter Details Date Type Department Care Team (Latest Contact Info) Description 05/17/2025 4:00 PM EDT Office Visit [place] [facility] [address], [address] [place] [address] Nam Emanuel MD [address] [address] Chronic bilateral low back pain with left-sided sciatica (Primary Dx); Degeneration of intervertebral disc of lumbar region with discogenic back pain and lower extremity pain; Herniated nucleus pulposus, thoracic Social History Tobacco Use Types Packs/Day Years [...] on file documented as of this encounter Last Filed Vital Signs Vital Sign Reading Time Taken Comments Blood Pressure 118/68 05/17/2025 4:02 PM EDT Pulse 88 05/17/2025 4:02 PM EDT Temperature - - Respiratory Rate - - Oxygen Saturation 97% 05/17/2025 4:02 PM EDT Inhaled Oxygen Concentration - - Weight 131 kg (288 lb 12.8 oz) 05/17/2025 4:02 P M EDT Height 152.4 cm (5') 05/17/2025 4:02 PM EDT Body Mass Index 56.4 05/17/2025 4:02 PM EDT documented in this encounter Functional Status * Over the [...] Kareem Puente documented as of this encounter Miscellaneous Notes * Progress Notes - Erwin Bella MD - 05/17/2025 4:00 PM EDT We had the pleasure of seeing your patient in our clinic today for continued Neurosurgical evaluation. Chief Complaint: 6wk fu History Of Present Illness: Daniel Velasquez is a 19 y.o. female with acute on chronic axial lower back pain and left lower extremity pain in the setting of paracentral disc herniations to the leftat T11-12 and L4-5 without overt canal stenosis or nerve root compression. Patient was previously referred for outpt PT and IVP and meloxicam. Patient states that she continues to have significant low back pain with radiation to her left lower extremity in the L5 distribution. She states that she intermittently has pain in the right lower extremity in his similar pattern. She denies any bowel or bladder dysfunction or saddle anesthesia. She has not been taking anything for the pain. She has been doing physical therapy which has not been helping very much. She states she has not done injections yet because she has not heard back from them. She does not take any blood thinners but does vape. She takes metformin for diabetes. Social History, Medications, and Allergies reviewed and noted below or in HPI Current Scheduled Medications[1] Current Continuous Medications[2] Current PRN Medications[3] Patient has no known allergies. 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 female with acute on chronic axial lower back pain and left lower extremity pain in the setting of paracentral disc herniations to the left at T11-12 and L4-5 without overt canal stenosis or nerve root compression. Patient has been attempting physical therapy without significant relief. She is still pending steroid injections in her imaging is stable. We will plan to see her in clinic after she completes trial of injections. She can call back the clinic after discuss if any relief is provided. 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 We discussed that she should speak with her primary care doctorregarding Ozempic and intensive weight loss therapy. Erwin Bella MD Resident Physician, PGY-2 Department of Neurosurgery [facility] [1] [2] [3] Cosigned by Nam Emanuel MD at 05/18/2025 1:06 PM EDT Associated attestation - Nam Emanuel MD - 05/18/2025 1:06 PM EDT I saw and evaluated the patient with the resident/BRIAN. I personally reviewed the available spinal imaging and historical documentation. I discussed the case with the residents/BRIAN and agree with the findings and plan as documented. I personally spent a total of 30 minutes on this encounter. This time includes face to face with patient, counseling and discussion and/or coordination of care. I spent >50% in [id number] communication with the patient over the diagnosis, treatment options and plan. documented in this encounter Plan of Treatment Scheduled Referrals Name Type Priority Associated Diagnoses Order Schedule Ambulatory referral to Pain Medicine Outpatient Referral Routine Chronic bilateral low back pain with left-sided sciatica 1 Occurrences starting 05/17/2025 until 11/18/2026 documented as of this encounter Results * XR Lumbar Spine [...] Slade Quintero MD on 05/17/2025 4:05 PM us Rhoda M Delair PA IMG XR PROCEDURES Final Result documented in this encounter Visit Diagnoses Diagnosis Chronic bilateral low back pain with left-sided sciatica- Primary Degeneration of intervertebral disc of lumbar region with discogenic back pain and lower extremity pain Herniated nucleus pulposus, thoracic Displacement of thoracic intervertebral disc without myelopathy Chronic bilateral low back pain with left-sided [...] documented as of this encounter Care Teams Jailer/Training Officer Relationship Specialty Start Date End Date Heena Cash PA [address] [place] [id number] PCP - General 04/30/25 documented as of this encounter
--- OUTSIDE RECORDS SUMMARY | 2025-06-30 10:26 | XMS_ITS | Encounter Summary ---
Author Organization [facility] Address [address] [place] [address] Care Team Providers Care Change Person Name Role Phone Nam Samano MD Primary Care Provider [phone] Heena Cash Primary Care Provider [phone] Encounter Details Date Type Department Care Team (Late st Contact Info) Description 04/12/2025 Telephone [place] [facility] [address], [address] [place] [address] Rhoda Fraser PA [address] [place] [address] Social History Tobacco Use Types Packs/Day Years Used Date Smoking Tobacco: Never Smokeless Tobacco: Never Comments Unknown Sex and Gender Information Value Date Recorded Sex Assigned at Female 03/18/2025 8:25 AM EDT Legal Sex Female 8:34 PM EDT Gender Identity Not on file Sexual Orientation Not on file documented as of this encounter Miscellaneous Notes * Telephone Encounter - Rhoda Fraser PA - 04/13/2025 1:25 PM EDT Spoke to the patient. She had questions about referral to pain management for injections. Since theorder was placed on 04/06/2025, reassured the patient it can take a couple weeks to process. Instructed patient to notify us if she does not hear anything in the next week or two. Verbal understanding received. Patient also wanted to let us know that has started physical therapy. * Telephone Encounter - Rhoda Fraser PA - 04/13/2025 1:12 PM EDT Left VM for patient to return call. Please secure chat message me if patient returns call. Thanks. * Telephone Encounter - Rhoda Fraser PA - 04/12/2025 10:10 PM EDT Per office note on 04/08/2025 - Daniel Velasquez is a 19 y.o. female with acute on chronic axial lower back pain and left lower extremity pain. MRI of the thoracic and lumbar spines demonstrate paracentral disc herniations to the left at T11-12 and L4-5 without overt canal stenosis or nerve root compression. She reports more back pain than leg pain. She is neurologically intact and without clinical myelopathy. Because the patient has not participated any recent conservative treatment therapies, we are recommending outpatient physical therapy. We faxed the order to [facility] in [place], [place], confirmation received. We will also place a referral to interventional pain management for injection therapy. We will begin the patient on a trial of Meloxicam for inflammation. The patient is scheduled to follow up with her PCP later this month to discuss weight loss treatment options. We will have the patient return to clinic follow up after conservative treatment therapies. We wi ll obtain scoliosis x-rays and lumbar flexion-extension x-ray films at follow-up appointment. We spent 3 to 10 minutes counseling her regarding the negative effects of tobacco on health. This includes heart disease, lung cancer, and stroke, as well as acceleration of degenerative change. They had the opportunity to ask questions, all of which were answered to their satisfaction. Will call in AM. * Telephone Encounter - Roger Kaiser - 04/12/2025 9:02 AM EDT Patient Phone Message Reason for Call: Patient calling has follow up questions from appt, about disk herniation needing call back to discuss Best contact number and optimal time of day to reach caller: [phone] Note: Please do not reply to this message. Follow-up communication and further actions as a result of this message need to be communicated with the patient directly, if the patient is not active onMyChart. If the patient is active on MyChart, they will receive notification of the communication/outcome via MyChart. documented in this encounter Plan of Treatment Not on file documented as of this encounter Visit Diagnoses Not on filedocumented in this encounter Additional Health Concerns Assessment Noted Time A fall risk assessment has been complete d for the patient 04/08/2025 8:43 AM EDT A Body Mass Index follow-up plan has been documented for the patient 04/08/2025 4:18 PM EDT documented as of this encounter Care Teams Change Person Relationship Specialty Start Date End Date Nam Samano MD [address] [place] [address] [place] [address] PCP - General 02/17/21 04/29/25 Heena Cash PA [address] [place] [address] PCP - General 04/30/25 documented as of this encounter
--- OUTSIDE RECORDS SUMMARY | 2025-06-30 10:27 | XMS_ITS | Encounter Summary ---
Author Organization [facility] Address [address] [place] [address] Care Team Providers Care Engraving Plate Maker Name Role Phone Shailesh Heena Nael KURTZ Primary Care Provider [phone] Encounter Details Date Type Department Care Team (Latest Contact Info) Description 05/17/2025 Travel Social History Tobacco Use Types Packs/Day Years [...] Kareem Puente documented as of this encounter Plan of [...] documented as of this encounter Care Teams Engraving Plate Maker Relationship Specialty Start Date End Date Heena Cash PA [address] [place] [address] PCP - General 04/30/25 documented as of this encounter
--- OUTSIDE RECORDS SUMMARY | 2025-06-30 10:27 | XMS_ITS | Clinical Summary ---
Author Organization [facility] Address [address] [place] [address] Care Team Providers Care Online Media Buyer Name Role Phone ShaileshHeena Nael KURTZ Primary Care Provider [phone] Allergies No known active allergies Medications methylPREDNISolo ne (Medrol Dospak) 4 MG tablets Take as directed. 1 each 5 Active Additional Information Patient not taking.Reported on 05/17/2025 methocarbamol (Robaxin) 750 MG tablet Take 1 tablet by mouth 4 times a day as needed for muscle spasms for up to 10 days. 40 tablet 5 Active Additional Information Patient not taking.Reported on 05/17/2025 cholecalciferol (Vitamin D-3) 50 MCG (2000 UT) capsule Take 1 capsule by mouth daily. 5 Active ergocalciferol 1.25 MG (44535 UT) capsule Take 1 capsule by mouth 1 time per week. 5 Active fluticasone (Flonase) 50 MCG/ACT nasal spray 4 Active silver sulfADIAZINE (Silvadene) 1 % cream APPLY A 1.5 MILLIMETER THICK LAYER OF CREAM TOPICALLY TO ENTIRE BURN AREA TWICE DAILY 5 Active traMADol (Ultram) 50 MG tablet TAKE 1 TABLET BY MOUTH EVERY 4 HOURS NEEDED FOR PAIN (MAXIMUM OF 4 TABLETS PER DAY) 5 Active meloxicam (Mobic) 15 MG tabletIndication s:Chronic bilateral low back pain with left-sided sciatica Take 1 tablet by mouth daily. 30 tablet 2 5 Active Additional Information Patient not taking.Reported on 05/17/2025 metFORMIN XR (Glucophage-XR) 500 MG 24 hr tablet Take 1 tablet by mouth 1 time each day with dinner. Active Active Problems No known active problems Encounters Date Type Department Care Team Description 05/17/2025 4:00 PM EDT Office Visit [facility] [address], [address] [place] [phone] Nam Emanuel MD Chronic bilateral low back pain with left-sided sciatica (Primary Dx); Degeneration of intervertebral disc of lumbar region with discogenic back pain and lower extremity pain; Herniated nucleus pulposus, thoracic 05/17/2025 3:42 PM EDT - 05/17/2025 11:59 PM EDT Hospital Encounter [facility] [address], [address] [place] [phone] Discharge Disposition: Home or Self Care 05/17/2025 3:40 PM EDT - 05/17/2025 3:41 PM EDT Hospital Encounter [facility] [address], [address] [place] [phone] Chronic bilateral low back pain with left-sided sciatica; Degeneration of intervertebral disc of lumbar region with discogenic back pain and lower extremity pain; Herniated nucleus pulposus, thoracic Discharge Disposition: Home or Self Care 05/17/2025 Travel 04/12/2025 Telephone [facility] [address], [address] [place] [phone] Rhoda Fraser PA 04/08/2025 8:40 AM EDT Office Visit [facility] [address], [address] [place] [phone] Rhoda Fraser PA Chronic bilateral low back pain with left-sided sciatica (Primary Dx); Degeneration of intervertebral disc of lumbar region with discogenic back pain and lower extremity pain; Herniated nucleus pulposus, thoracic 04/08/2025 Travel from Last 3 Months Immunizations Immunization Administration Dates Next Due DTaP / Hep B / IPV 01/02/2005,2004 DTaP, Unspecified 04/26/2009,11/16/2005,10/31/19 05 HPV 9-Valent 06/24/2018,11/27/2016 Hep A, ped/adol, 2 dose 01/07/2019,06/24/2018 Hep B Immune Globulin 2004 Hep B, Adolescent or Pediatric 2004 Hib (PRP-OMP) 07/10/2005,2004,2004 IPV 04/26/2009,2004 Influenza, injectable, quadr ivalent, preservative free 09/15/2018 MMR 04/26/2009,11/16/2005 Meningococcal MCV4P 07/25/2020,11/27/2016 Pneumococcal Conjugate PCV 7 11/16/2005, 01/02/2005,2004,08/28 Tdap 11/27/2016 Varicella 04/26/2009,07/10/2005 Social History Tobacco Use Types Packs/Day Years [...] on file Sexual Orientation Not on file Last Filed Vital Signs Vital Sign Reading Time Taken Comments Blood Pressure 118/68 05/17/2025 4:02 PM EDT Pulse 88 05/17/2025 4:02 PM EDT Temperature 36.7 C (98 F) 03/18/2025 8:43 PM EDT Respiratory Rate 16 03/18/2025 8:43 PM EDT Oxygen Saturation 97% 05/17/2025 4:02 PM EDT Inhaled Oxygen Concentration - - Weight 131 kg (288 lb 12.8 oz) 05/17/2025 4:02 P M EDT Height 152.4 cm (5') 05/17/2025 4:02 PM EDT Body Mass Index 56.4 05/17/2025 4:02 PM EDT Plan of Treatment Health Maintenance Due Date Last Done Comments [facility]-/Child/Adol SDOH Screenings 2004 [facility]- SDOH Screenings 2022 [facility]-Adult SDOH Screenings 2022 [id number] Vaccine ( season) 2025 [facility]-Influenza Vaccine (#1) 2025 09/15/2018 [facility]-Depression Screening 05/17/2026 05/17/2025 [facility]-DTaP,Tdap,and Td Vaccines (7 - Td or Tdap) 11/27/2026 11/27/2016, 04/26/2009, 11/16/2005, Additional history exists [facility]-Zoster Vaccines (1 of 2) 2054 04/26/2009, 07/10/2005 [facility]-Hepatitis B Vaccines Completed 005, 2004, 2004 [facility]-HIB Vaccines Completed 07/10/2005, , 2004 [facility]-Pneumococcal Vaccine: Pediatrics (0 to 5 Years) and At-Risk Patients (6 to 49 Years) Aged Out 11/16/2005, 01/02/2005, 2004, Additional history exists No longer eligible based on patient's age to complete this topic [facility]-IPV Vaccines Completed 04/26/2009, , 2004, Additional history exists [facility]-Varicella Vaccines Completed 04/26/2009, 2004 HPV Vaccines Completed 06/24/2018, 11/27/2016 [facility]-Hepatitis A Vaccines Completed 01/07/2019, 06/07 [facility]-HIV Screening Completed 04/05/2024 [facility]-Hepatitis C Screening Completed 04/05/2024, [facility]-Obesity Intervention Completed 05/17/2025, 12/2024 [facility]-Rotavirus Vaccines Aged Out No lo nger eligible based on patient's age to complete this topic Procedures Procedure Name Priority Date/Time Associated Diagnosis [...] lower extremity pain Herniated nucleus pulposus, thoracic HEPATITIS C ANTIBODY - ED W/REFLEX TO HCV QUANT PCR STAT 04/05/2024 11:52 PM EDT ED HIV 1/2 ANTIBODY/ANTIGEN SCREEN WITH REFLEX TO HIV I/II DIFFERENTIATION STAT 04/05/2024 11:52 PM EDT from Last 3 Months or Most Recently Relevant to Health Maintenance Results * XR Lumbar Spine 2 or [...] KURTZ IMG XR PROCEDURES Final Result * ED HIV 1/2 Antibody/Antigen Screen w/Reflex to HIV 1/2 Differentiation (04/05/2024 11:52 PM EDT) HIV 1 & 2 Antibody/Antigen Screen Non Reactive Non Reactive 04/06/2024 12:55 AM EDT [facility] Comment:Screening for HIV 1 & 2 antibodies, and P24 antigen is NONREACTIVE. No confirmatory testing is required. Blood Venous blood specimen / Unknown Venipuncture / Unknown 04/05/2024 11:52 PM EDT 04/05/2024 11:55 PM EDT us Ajith Leary MD LAB BLOOD ORDERABLES Final Re sult [facility] [address] [place] [id number] * Hepatitis C Antibody - ED (04/05/2024 11:52 PM EDT) Hepatitis C Antibody Negative Negative 04/06/2024 12:55 AM EDT [facility] Blood Venous blood specimen / Unknown Venipuncture / Unknown 04/05/2024 11:52 PM EDT 04/05/2024 11:55 PM EDT us Ajith Leary MD LAB BLOOD ORDERABLES Final Re sult [facility] [address] [place] [address] from Last 3 Months or Most Recently Relevant to Health Maintenance Insurance [facility] MEDICAID Advance Directives * Full Code (Latest Code Status on File) Date Activated Date Inactivated Comments 03/18/2025 9:00 AM 03/19/2025 12:01 AM Question Answer Comments I have reviewed the capacity from the link above and, if needed, have updated to appropriate status: Yes Care Teams Online Media Buyer Relationship Specialty Start Date End Date Heena Cash PA [address] [place] [address] PCP - General 04/30/25
--- NOTE | 2025-06-30 10:30 | US_ITS ---
PROCEDURE: US TRANSVAGINAL CLINICAL INDICATION: Infertility COMPARISON: CT CT ABDOMEN PELVIS W CON from 03/11/2024 FINDINGS: Transvaginal sonographic images of the pelvis were obtained. UTERUS: 6.1cm x 3.9 cmx 2.9 cm anteverted with a combined endometrial thickness of 4.3mm. LEFT OVARY: 2.5cmx1.2cmx1.4cm with a volume of 2.2ml. There are multiple small peripheral follicles. RIGHT OVARY: 4.9 cmx 4.6 cmx4.9 cm with a volume of 58.4ml. There is a follicle within the right ovary measuring 4.6 cm x 3.5 cm x 3.6 cm Both ovaries are seen and appear normal. Doppler flow to both ovaries are seen. There is no fluid in the cul-de-sac. IMPRESSION: 1. Anteverted uterus normal in shape and size. The endometrium appears normal. 2. The left ovary is seen and has multiple small peripheral follicles. The right ovary contains a simple cyst measuring 4.6 cm. Suggest repeat ultrasound in 8 weeks. 3. No fluid in the cul-de-sac. Dictated by: Carlos Fletcher MD 06/30/2025 12:21 Carlos Fletcher MD in OV 06/30/2025 12:21
== END 2025-06-30 23:59 | disposition home or self-care (01) ==
LOC: RAD 10:22
PROVIDERS: PCP Physician Assistant; Visit Provider Obstetrics & Gynecology
DX: N85.4 Malposition of uterus (principal); N83.02 Follicular cyst of left ovary; N83.291 Other ovarian cyst, right side; N97.9 Female infertility, unspecified; N94.10 Unspecified dyspareunia; Z31.9 Encounter for procreative management, unspecified
CPT/HCPCS: 76830

== ENCOUNTER 2025-08-07 10:27 | Outpatient (CLI) | payer OTHER, SELFPAY ==
--- OUTSIDE RECORDS SUMMARY | 2025-08-07 10:30 | XMS_ITS | Data Portability ---
Author Organization [facility] [employer] [place] - [facility] Address [address] [place] [address] Assessment No assessment recorded. Plan of Treatment Reminders Order Date Submit Date Provider Last Modified By Organization Details Last Modified Time Details Appointments FOLLOW UP 30 2024 01:00P Abiola Cash PA-C Not available Not available Not available Lab urinalysi s, dipstick [address], [address] [facility], [place], [address], 06/17/2025 17:19:31 culture, urine 2024 025 [place] [facility], [address] [place] [address], [id number], 06/19/2025 03:06:54 Referral None recorded. Procedures None recorded. Surgeries None recorded. Imaging home sleep study [id number] Home Sleep Study (Verified Jul 28), [address] [facility], [place], [address], 07/13/2025 10:40:16 Medication Orders Adipex-P 37.5 mg tablet 2024 025 [place] [id number], [address], [place], [place], [id number], 07/16/2025 11:58:00 Adipex-P 37.5 mg tablet 2024 025 [facility], [address] [place], [address], 06/17/2025 17:13:44 metformin ER 500 mg tablet,ex tended release 24 hr 2024 025 [facility], [address] [place] [address], [id number], 07/16/2025 14:46:26 Wegovy 0.25 mg/0.5 mL subcutane ous pen injector 2024 025 [facility], [address] [place] [address], [id number], 06/17/2025 17:07:37 metformin ER 500 mg tablet,ex tended release 24 hr [id number] [facility] [address] [facility], [address] [place] [address], [id number], 07/16/2025 11:45:42 promethaz ine-DM 6.25 mg-15 mg/5 mL oral syrup 2024 025 [facility], [address] [place] [address], [id number], 04/23/2025 08:20:07 Silvadene 1 % topical cream 2024 025 [facility], [address] [place] [address], [id number], 04/23/2025 08:29:46 amoxicill in 875 mg-potass ium clavulana te 125 mg tablet 2024 025 [facility], [address] [place] [address], [id number], 04/23/2025 08:41:46 prednison e 20 mg tablet 2024 025 [facility], [address] [place] [address], [id number], 04/23/2025 08:42:29 Patient TargetsNo targets recorded. Patient Instructions Encounter Date Encounter Id Patient Instructions Last Modified By Organization Details Last Modified Time 03/12/2025 [id number] ear infection (otitis media): care instructions [email or web address] Not available 03/12/2025 09:31:18 04/23/2025 [id number] body mass index: care instructions [email or web address] Not available 04/23/2025 08:38:20 learning about healthy weight [email or web address] Not available 04/23/2025 08:38:20 06/17/2025 [id number] body mass index: care instructions [email or web address] Not available 06/17/2025 17:13:38 learning about healthy weight [email or web address] Not available 06/17/2025 17:13:38 painful urinatio n (dysuria): care instructions [email or web address] Not available 06/17/2025 16:56:02 snoring: care instructions [email or web address] Not available 06/17/2025 17:13:39 07/16/2025 [id number] body mass index: care instructions [email or web address] Not available 07/16/2025 11:57:51 learning about healthy weight [email or web address] Not available 07/16/2025 11:57:51 Reason for Referral None Reported. Results Created Date Observation Date Name Description Value Unit Range Abnormal Flag Note LastModifiedBy Organization Detail LastModifiedTime 02/11/2002/12/2025 CT, NG, TRICH VAG BY KENYATTA chlamydia by KENYATTA Negati ve negati ve Not Available [facility] [address] [place], [address], 02/12/2025 04:08:59 02/11/20 25 02/12/2025 CT, NG, TRICH VAG BY KENYATTA gonococcus by KENYATTA Negati ve negati ve Not Available [facility] [address] [place], [address], 02/12/2025 04:08:59 02/11/20 25 02/12/2025 CT, NG, TRICH VAG BY KENYATTA trich vag by KENYATTA Negati ve negati ve Not Available [facility] [address] [facility] [place], [address], 02/12/2025 04:08:59 02/11/20 25 02/12/2025 URINE CULTU RE, HERRERAI NE urine culture, routine Final report Not Available [facility] [address] [facility], [place], [address], 02/12/2025 04:08:59 02/11/20 25 02/12/2025 URINE CULTU RE, HERRERAI NE result 1 No growth Not Available [facility] [address] [facility], [place], [address], 02/12/2025 04:08:59 02/11/20 25 02/10/2025 urina lysis , dipst ick Leukocytes Negati ve Not Available [address], [address], 02/10/2025 13:32:14 02/11/20 25 02/10/2025 urina lysis , dipst ick Nitrite negati ve Not Available [address], [address], 02/10/2025 13:32:14 02/11/20 25 02/10/2025 urina lysis , dipst ick Urobilinogen 1 Not Available [address], [address], 02/10/2025 13:32:14 02/11/20 25 02/10/2025 urina lysis , dipst ick Protein Negati ve Not Available [address], [address], 02/10/2025 13:32:14 02/11/20 25 02/10/2025 urina lysis , dipst ick pH 5.5 Not Available [address], [place], [address], 02/10/2025 13:32:14 02/11/20 25 02/10/2025 urina lysis , dipst ick Blood Modera te Not Available [address], [place], [address], 02/10/2025 13:32:14 02/11/20 25 02/10/2025 urina lysis , dipst ick Specific Haiku 1.025 Not Available [address], [place], [address], 02/10/2025 13:32:14 02/11/20 25 02/10/2025 urina lysis , dipst ick Ketone Negati ve Not Available [address], [place], [address], 02/10/2025 13:32:14 02/11/20 25 02/10/2025 urina lysis , dipst ick Bilirubin Negati ve Not Available [address], [place], [address], 02/10/2025 13:32:14 02/11/20 25 02/10/2025 urina lysis , dipst ick Glucose Negati ve Not Available [address], [place], [address], 02/10/2025 13:32:14 02/11/20 25 02/10/2025 urina lysis , dipst ick Appearance Turbid Not Available [address], [place], [address], 02/10/2025 13:32:14 02/11/20 25 02/10/2025 urina lysis , dipst ick Color Brown Not Available [facility] [address] [facility], [place], [address], 02/10/2025 13:32:14 06/17/2006/19/2025 URINE CULTU RE, ROUTI NE urine culture, routine Final report Not Available [facility] [address] [facility], [place], [address], 06/19/2025 03:06:54 06/17/2006/19/2025 URINE CULTU RE, ROUTI NE result 1 COMMEN T Mixed uroge nital renee Less than 10,00 0 colon ies/m L Not Available [facility] [address] [facility], [place], [address], 06/19/2025 03:06:54 06/17/2006/17/2025 urina lysis , dipst ick Leukocytes Negati ve Not Available [facility] [address] [place] [address], [place], [address], 06/17/2025 16:55:04 06/17/2006/17/2025 urina lysis , dipst ick Nitrite negati ve Not Available [facility] [address] [place] [address], [place], [address], 06/17/2025 16:55:04 06/17/2006/17/2025 urina lysis , dipst ick Urobilinogen 1 Not Available [facility] [address] [place] [address], [address], 06/17/2025 16:55:04 06/17/2006/17/2025 urina lysis , dipst ick Protein Negati ve Not Available [facility] [address] [place] [address], [address], 06/17/2025 16:55:04 06/17/20 25 06/17/2025 urina lysis , dipst ick pH 6.0 Not Available [address], [place], [address], 06/17/2025 16:55:04 06/17/20 25 06/17/2025 urina lysis , dipst ick Blood Negati ve Not Available [address], [place], [address], 06/17/2025 16:55:04 06/17/2006/17/2025 urina lysis , dipst ick Specific Haiku 1.025 Not Available [address], [place], [address], 06/17/2025 16:55:04 06/17/2006/17/2025 urina lysis , dipst ick Ketone Negati ve Not Available [address], [place], [address], 06/17/2025 16:55:04 06/17/20 25 06/17/2025 urina lysis , dipst ick Bilirubin Negati ve Not Available [address], [place], [address], 06/17/2025 16:55:04 06/17/2006/17/2025 urina lysis , dipst ick Glucose Negati ve Not Available [address], [address], 06/17/2025 16:55:04 06/17/2006/17/2025 urina lysis , dipst ick Appearance Clear Not Available [address], [address], 06/17/2025 16:55:04 06/17/20 25 06/17/2025 urina lysis , dipst ick Color Yellow Not Available [facility] [address] [facility] [facility] [address], [place], [address], 06/17/2025 16:55:04 06/30/20 25 06/30/2025 US, trans vagin al No observ ation record ed. [email or web address] [facility] [address], [place], [address], 07/01/2025 09:57:57 Result Notes None recorded. Problems Name Problem SNOMED Code Status Onset Date Resolution Date Notes Provider Name and Address Organization Details Recorded Time Dysuria 75187028 Completed 202301/15/2025 SALTY PINEDA NP [address] [place] [address], [address], [employer] 14:27:25 Vitamin D deficienc y 30465547 Active 2024 JERARDO Hahn [address] [place] [address], [address] 8, [employer] 13:29:40 Ganglion cyst of right wrist 502782850484 109 Active 2024 JERARDO Hahn [address] [place] [address], [address] 8, [employer] 13:29:36 Abdominal bloating 282765791 Active 2024 SALTY PINEDA NP [address] [place] [address], [address] 8, [place] [employer] 14:08:32 Dysuria 44740510 Active 2024 SALTY PINEDA NP [address] [place] [address], [address] 8, [employer] 14:27:25 Acute suppurati ve otitis media without spontaneo us rupture of ear drum 81938091 Active 2024 JERARDO Hahn [address] [place] [address], [address] 8, [employer] 5 09:29:51 Acute cough Active 2024 HeenaJERARDO Briseno [address] [place] [address], [address] 8, [employer] 5 09:29:57 Sunburn of first degree 954696892 Active 2024 JERARDO Hahn [address] [place] [address], [address] 8, [employer] 5 09:30:01 Solar erythema 926995987 Active 2024 JERARDO Hahn [address] [place] [address], [address] 8, [employer] 5 09:30:02 Anxiety 36784036 Active 2024 JERARDO Hahn [address] [place] [address], [address] 8, [employer] 5 10:01:03 Snoring 01622375 Active 2024 JERARDO Hahn [address] [place] [address], [address] 8, [employer] 5 17:12:52 Problem Notes None recorded. Procedures Surgical History Date Name Laterality Status Provider Name and Address Organization Details Recorded Time excision of ganglion cyst of wrist completed Yasimne Foley [employer] 02/10/2025 13:30:54 Imaging Results None recorded. Procedure Notes None recorded. Medical Equipment None Reported. Allergies No known drug allergies Medications Name Sig Start Date Stop Date Status Note LastModified by Organization Details LastModified Time methocarba mol 500 mg tablet TAKE 2 TABLETS BY MOUTH EVERY 8 HOURS NEEDED 03/20 completed Not Available Not Available Not Available buspirone 5 mg tablet TAKE 1 TABLET BY MOUTH TWICE DAILY FOR ANXIETY 01/01 completed Not Available Not Available Not Available silver sulfadiazi ne 1 % topical cream APPLY A 1.5 MILLIMET ER THICK LAYER OF CREAM TOPICALL Y TO ENTIRE BURN AREA TWICE DAILY 04/23 completed Not Available Not Available Not Available promethazi ne-DM 6.25 mg-15 mg/5 mL oral syrup TAKE 5 ML BY MOUTH EVERY 4 HOURS NEEDED FOR COUGH FOR 10 DAYS 04/23 completed Not Available Not Available Not Available triazolam 0.25 mg tablet TAKE 1 TABLET BY MOUTH AT BEDTIME THE NIGHT PRIOR TO DENTAL APPOINTM ENT. TAKE 1 TABLET 1 HOUR PRIOR TO APPOINTM ENT. BRING THIRD TABLET WITH YOU. DO NOT DRIVE WHILE TAKING THIS MEDICATI ON 01/01 completed Not Available Not Available Not Available trazodone 50 mg tablet TAKE 1 TABLET BY MOUTH ONCE DAILY AT BEDTIME 02/17 completed Not Available Not Available Not Available cetirizine 10 mg tablet TAKE 1 TABLET BY MOUTH ONCE DAILY 01/01 completed Not Available Not Available Not Available benzonatat e 200 mg capsule TAKE 1 CAPSULE BY MOUTH 2 TO 3 TIMES DAILY NEEDED FOR COUGH FOR 7 DAYS 02/17 completed Not Available Not Available Not Available meloxicam 15 mg tablet TAKE 1 TABLET BY MOUTH ONCE DAILY 04/23 completed Not Available Not Available Not Available ondansetro n HCl 4 mg tablet TAKE 1 TABLET BY MOUTH EVERY 6 HOURS NEEDED FOR NAUSEA AND VOMITING 05/26 completed Not Available Not Available Not Available prednisone 20 mg tablet TAKE 1 TABLET BY MOUTH TWICE DAILY FOR 5 DAYS 04/23 completed Not Available Not Available Not Available loperamide 2 mg tablet 05/26 completed Not Available Not Available Not Available venlafaxin e ER 150 mg capsule,ex tended release 24 hr TAKE 1 CAPSULE BY MOUTH ONCE DAILY 02/17 completed Not Available Not Available Not Available hydroxyzin e pamoate 50 mg capsule TAKE 1 CAPSULE BY MOUTH EVERY 8 HOURS NEEDED FOR ANXIETY 02/17 completed Not Available Not Available Not Available metronidaz ole 500 mg tablet TAKE 1 TABLET BY MOUTH TWICE DAILY FOR 7 DAYS 10/06 completed Not Available Not Available Not Available phentermin e 37.5 mg tablet TAKE 1 TABLET BY MOUTH EVERY DAY active Not Available Not Available No t Available ciprofloxa no 500 mg tablet TAKE 1 TABLET BY MOUTH EVERY 12 HOURS FOR 7 DAYS 10/06 completed Not Available Not Available Not Available sulfametho xazole 800 mg-trimeth oprim 160 mg tablet TAKE 1 TABLET BY MOUTH EVERY 12 HOURS FOR 7 DAYS 05/26 completed Not Available Not Available Not Available tramadol 50 mg tablet TAKE 1 TABLET BY MOUTH EVERY 4 HOURS NEEDED FOR PAIN (MAXIMUM OF 4 TABLETS PER DAY) 04/23 completed Not Available Not Available Not Available triamcinol one acetonide 0.1 % topical cream APPLY TO THE AFFECTED AREAS THREE TIMES DAILY NEEDED 01/01 completed Not Available Not Available Not Available methocarba mol 750 mg tablet TAKE 2 TABLETS BY MOUTH THREE TIMES A DAY FOR 5 DAYS 01/15 completed Not Available Not Available Not Available Depo-Prove ra 150 mg/mL intramuscu lar suspension Inject 1 mL every 3 months by intramus cular route. 10/06 completed Not Available Not Available Not Available lidocaine 5 % topical patch APPLY 1 PATCH TOPICALL Y DAILY LEAVE ON MOST PAINFUL AREA FOR UP TO 12 HRS 01/15 completed Not Available Not Available Not Available ibuprofen 400 mg tablet 05/26 completed Not Available Not Available Not Available nicotine 21 mg/24 hr daily transderma l patch Apply 1 patch every day by transder mal route. 05/26 completed Not Available Not Available Not Available fluoxetine 10 mg capsule TAKE 1 CAPSULE BY MOUTH ONCE DAILY FOR DEPRESSI ON 01/01 completed Not Available Not Available Not Available ergocalcif lev (vitamin D2) 1,250 mcg (50,000 unit) capsule Take 1 capsule every week by oral route as directed for 90 days, for Vitamin D deficien cy. 01/15 completed Not Available Not Available Not Available methylpred nisolone 4 mg tablets in a dose pack TAKE DIRECTED ON PACKAGE 01/15 completed Not Available Not Available Not Available fluoxetine 20 mg capsule TAKE 1 CAPSULE BY MOUTH ONCE DAILY 01/01 completed Not Available Not Available Not Available fluticason e propionate 50 mcg/actuat ion nasal spray,susp ension 10/06 completed Not Available Not Available Not Available metformin ER 500 mg tablet,ext ended release 24 hr TAKE 1 TABLET BY MOUTH ONCE DAILY FOR 30 DAYS 07/16 completed Not Available Not Available Not Available amoxicilli n 875 mg-potassi um clavulanat e 125 mg tablet TAKE 1 TABLET BY MOUTH EVERY 12 HOURS FOR 10 DAYS 04/23 completed Not Available Not Available Not Available Pain Reliever (acetamino phen) 500 mg tablet 05/26 completed Not Available Not Available Not Available cholecalci ferol (vitamin D3) 50 mcg (2,000 unit) capsule Take 1 capsule every day by oral route as directed for 90 days, for Vitamin D deficici ency. 01/15 completed Not Available Not Available Not Available Mucus Relief ER 600 mg tablet, extended release 10/06 completed Not Available Not Available Not Available Vraylar 1.5 mg capsule Take 1 capsule every day by oral route. 05/26 completed Not Available Not Available Not Available Robitussin Cough-Ches t Congestion DM 5 mg-100 mg/5 mL oral liquid TAKE 5 TO 10 ML BY MOUTH EVERY 4 TO 6 HOURS NEEDED 01/01 completed Not Available Not Available Not Available Wegovy 0.25 mg/0.5 mL subcutaneo us pen injector Inject 0.5 mL every week by subcutan eous route for 28 days. 06/17 completed pt states that she isnt taking this med due to being to high Not Available Not Available Not Available Vitals Date Recorded Body height Body mass index (BMI) [Percentile] Per age and sex Body mass index (BMI) Body weight Heart rate Oxygen saturation Oxygen saturation in Arterial blood by Pulse oximetry Body temperature Systolic And Diastolic Provider Name and Address Organization Details Last Updated DateTime 5 152.4 cm 99 % 55.8 kg/m2 648433. 63 g 104 /min 98 % 98 % 98.1 [degF] 104/73 mm[Hg] Yasmine Foley [employer] 5 09:13:22 Date Recorded Body height Body mass index (BMI) [Percentile] Per age and sex Body mass index (BMI) Body weight Heart rate Oxygen saturation Oxygen saturation in Arterial blood by Pulse oximetry Systolic And Diastolic Provider Name and Address Organization Details Last Updated DateTime 5 152.4 cm 99 % 56.9 kg/m2 308379. 48 g 97 /min 100 % 100 % 103/67 mm[Hg] Denise Doaln [employer] 5 08:29:30 Date Recorded Body height Body mass index (BMI) [Percentile] Per age and sex Body mass index (BMI) Body weight Oxygen saturation Oxygen saturation in Arterial blood by Pulse oximetry Heart rate Body temperature Systolic And Diastolic Provider Name and Address Organization Details Last Updated DateTime 5 152.4 cm 99 % 55.8 kg/m2 766526. 98 g 97 % 97 % 92 /min 98.2 [degF] 100/68 mm[Hg] [employer] 5 09:49:55 Date Recorded Body mass index (BMI) Body mass index (BMI) [Percentile] Per age and sex Body weight Heart rate Oxygen saturation Oxygen saturation in Arterial blood by Pulse oximetry Body temperature Systolic And Diastolic Provider Name and Address Organization Details Last Updated DateTime 5 56.7 kg/m2 99 % 817989. 59 g 94 /min 96 % 96 % 98.1 [degF] 108/63 mm[Hg] [employer] 5 17:04:27 Date Recorded Body height Provider Name an d Address Organization Details Last Updated DateTime 06/17/2025 152.4 cm [facility] [employer] [facility] 06/17/2025 16:55:11 Date Recorded Body height Body mass index (BMI) Body weight Body temperature Heart rate Oxygen saturation Oxygen saturation in Arterial blood by Pulse oximetry Systolic And Diastolic Provider Name and Address Organization Details Last Updated DateTime 5 152.4 cm 53.8 kg/m2 961264 g 98.3 [degF] 90 /min 99 % 99 % 107/72 mm[Hg] Yasmine [employer] 5 11:49:08 Social History Question Answer Notes LastModified by Organizat ion Details LastModified Time Tobacco Smoking Status Never Smoker Yasmine [employer] 07/16/2025 11:45:07 Do You Have An Advance Directive? No Information n ot available 10/06/2024 Is Your Home Air Conditioned? Yes Information not available 02/18/2024 If You Are , What Was Your Level Of Alcohol Consumption Prior To ? None Information not available 10/06/2024 How Many Years Have You Consumed Alcohol? 3 Information not available 10/06/2024 Do You Wear A Helmet When Biking? No [email or web address] Information not available 05/26/2024 Are You Blind Or Do You Have Difficulty Seeing? No Information n ot available 02/18/2024 What Is Your Level Of Caffeine Consumption? None [email or web address] Information not available 07/16/2025 Are You A Caregiver? No Information not available 02/18/2024 What Type Of Core Blower Operator Do You Use? None Information not available 10/06/2024 In The 14 Days Before Symptom Onset, Have You Had Close Contact With A Laboratory-confirm ed COVID-19 While That Case Was Ill? No Information n ot available 02/18/2024 In The 14 Days Before Symptom Onset, Have You Had Close Contact With A Person Who Is Under Investigation For COVID-19 While That Person Was Ill? No Information not available 02/18/2024 Have You Been To An Area Known To Be High Risk For COVID-19? No Information not available 02/18/2024 Are You Deaf Or Do You Have Serious Difficulty Hearing? No Information not available 02/18/2024 What Type Of Diet Are You Following? REGULAR Information n ot available 05/26/2024 What Is The Highest Grade Or Level Of School You Have Completed Or The Highest Degree You Have Received? [id number] [email or web address] Information not available 07/16/2025 Who Is Your Employer? [employer] Information not available 02/18/2024 Have There Been Any Changes To Your Family Or Social Situation? No Information no t available 10/06/2024 Are There Any Guns Present In Your Home? No Information not available 10/06/2024 Which Of Your Hands Is Dominant? Right Information n ot available 10/06/2024 Do You Engage In Moderate/heavy Exercise (e.g. Brisk Walk, Jogging, Strength Training, Etc)? No [email or web address] Information not available 07/16/2025 How Many Times In The Past Year Have You Used An Illegal Drug Or Used A Prescription Medication For Nonmedical Reasons? 0 [email or web address] Information not available 07/16/2025 Where Do You Live? Apartment [email or web address] Inform ation not available 07/16/2025 Do You Have A Medical Power Of Supervisor International Reservations? No Information not available 10/06/2024 What Was The Date Of Your Most Recent Tobacco Screening? 07/16/2025 [email or web address] Information not available 07/16/2025 Are There Any Occupational Health Risks Where You Work? No Information not available 10/06/2024 What Is Your Current Pack Years? [email or web address] Information not available 10/06/2024 Have You Ever Been Counseled For Unhealthy Alcohol Use? No Information not available 02/18/2024 Do You Have Any Pets? No Information not available 10/06/2024 Do You Use Protection During Sex? No Information not available 10/06/2024 What Is Your Relationship Status? Single Information not available 02/18/2024 Have You Repeated Any Grades? No Information not available 10/06/2024 Do You Wear A Seatbelt When Driving Or As A Passenger? Yes [email or web address] Information not available 07/16/2025 Do You Use Your Seat Belt Or Car Seat Routinely? Yes Information not available 02/18/2024 Are You Sexually Active? Yes Information not available 10/06/2024 Do You Have Any Siblings? Yes Information not available 10/06/2024 Do You Have Smoke And Carbon Monoxide Detectors In Your Home? Yes Information not available 02/18/2024 At What Age Did You Start Smoking Tobacco? 7 Information not available 10/06/2024 Are You Passively Exposed To Smoke? Yes Information no t available 10/06/2024 Are There Any Smokers In Your House? Yes Information not available 10/06/2024 How Much Tobacco Do You Smoke? 1 PPW Information not available 10/06/2024 Do You Participate In Social Media? Yes [email or web address] Information not available 05/26/2024 What Types Of Sporting Activities Do You Participate In? N/A Information not available 07/16/2025 Do You Use Sunscreen Routinely? No Information not available 10/06/2024 Has Tobacco Cessation Counseling Been Provided? Yes Information not available 02/18/2024 On What Date Was Tobacco Cessation Counseling Provided? 07/16/2025 Information not available 07/16/2025 How Many Years Have You Smoked Tobacco? 12 Information not available 10/06/2024 Have You Recently Traveled Abroad? No Information not available 02/18/2024 Do You Have Difficulty Walking Or Climbing Stairs? No Information not available 02/18/2024 Are You Currently In School? No Information not available 10/06/2024 What Contraceptive Method Was Reported At Start Of This Visit? None [email or web address] Information not available 07/16/2025 Do You Feel Safe In Your Home? Yes [email or web address] Information not available 07/16/2025 Do You Have Any Dietary Restrictions? No Information not available 05/26/2024 How Many Days In The Past Year Have You Consumed 4 Or More Drinks? 2 Information not available 10/06/2024 What Is Your Reason For Having No Contraceptive Method At Start Of This Visit? Same Sex Partner Information not available 07/16/2025 Sex: Female Functional Status Question Answer Note LastModified by Organizat ion Details LastModified Time How many times per week do you consume alcohol? Less than 1 time per week Information not available 02/18/2024 Do you or have you ever used smokeless tobacco? Never used smokeless tobacco Information not available 02/18/2024 Are you currently employed? Yes Information not available 02/18/2024 Do you have transportation difficulties? No Information not available 02/18/2024 Are you able to care for yourself independently? Yes Information not available 02/18/2024 Do you have difficulty dressing, bathing, grooming, or toileting? No Information not available 02/18/2024 Do you or have you ever used e-cigarettes or vape? Current user of electronic cigarettes Information not available 02/18/2024 What is your exercise level? Occasional Information not available 05/26/2024 Do you use any illicit or recreational drugs? No Information not available 02/18/2024 Do you feel safe in your relationship? Yes [email or web address] Information not available 07/16/2025 Do you or have you ever used any other forms of tobacco or nicotine? Yes Information not available 02/18/2024 What is your level of alcohol consumption? Occasional Information not available 02/18/2024 Are you able to walk independently without assistance or assistive devices? [email or web address] Information not available 02/18/2024 Do you have difficulty doing errands alone? No Information not available 02/18/2024 Mental Status Question Answer Note LastModified by Organizat ion Details LastModified Time Do you feel stressed (tense, restless, nervous, or anxious, or unable to sleep at night)? [email or web address] Information not available 07/16/2025 Do you have difficulty concentrating, remembering or making decisions? No Information no t available 02/18/2024 Are you or have you been involved with bullying? No Information not available 10/06/2024 Family History Relationship Description Onset Age of this Age Resolved Age Notes LastModified by Organization Details LastModified Time Paternal Grandmother Hypertensive disorder Not available 2023 09:33:31 Mother Hypertensive disorder Not available 2023 09:33:31 Maternal Grandmother Hypertensive disorder Not available 2023 09:33:31 Medical History Condition Response Coronary Artery Disease N Other N Gout N Kidney Stones N Blood Diseases N Hyperthyroidism N Breast Cancer N Blood Transfusion N Emergency room visit since last appointm ent. N Hypothyroidism N Lung Disease N Dermatologic Disorders N Depression N COPD N Developmental or Behavioral Disorders N Defects or Inherited Disease N Breast Problem N Difficulty Swallowing N Anesthesia Complications N History of STI N Meniere's disease N Anxiety Disorder N Muscle, Joint, or Bone Problems N Autoimmune disease N Vision or Eye Problems N Arthritis N Polyps N Infertility N Mental Disorder N Congenital Anomalies N Acid Reflux (GERD) N Cancer N Stroke N Neurologic/Epilepsy N Endometriosis N Bladder or Kidney Problems N High Cholesterol N Liver Disease N Psychiatric/Mental Health Condition N Organ Transplant N Fibromyalgia N Dialysis N Schizophrenia N Headaches N Kidney Disease N Allergies/Hayfever N Heart Problems N Ear or Hearing Problems N Hospitalizations N Learning Disorder N Artificial Joints N Thyroid Problems N GI Problems N Acne N ADD/ADHD N Eating Disorder N Anemia N Constipation N Mental Illness N Ovarian Cancer N Diabetes N Bedwetting N Hepatitis/Liver Disease N Tuberculosis N Eczema N Diverticulitis N Abuse/Domestic Violence N Asthma N Trauma/Violence N Substance Abuse N Reflux/GERD N Depression/ depression N Hepatitis N Heart Disease N Pulmonary Embolism N Tourette Syndrome N Pre-Eclampsia N Hypertension N Chronic Ear Infections N Osteoporosis N Chicken Pox N Autism Spectrum Disorder (ASD) N Thrombophilias N Gynecological History Statement/Question Response Abnormal Pap N Flow Moderate Date of LMP 05/08/2025 On BCP's at Conception? N STIs/STDs N HPV Vaccine N Duration of Flow (days) 5 Most Recent Mammogram Current Control Method None Age at Menarche 12 Menses Monthly N Date of Last Pap Smear Sexual Problems? N LMP Approximate Desired Control Method None Obstetrics History GPAL:G 0 P 0 0 0 0 Immunizations Vaccine Type Date Status Note Provider Nam e and Address Organization Details Recorded Time HPV9 7 completed Becca Cachorro null, [employer] 01/01/2023 14:23:54 HPV9 8 completed Becca Cachorro null, [employer] 01/01/2023 14:23:54 IPV 5 completed Becca Lunenburg null, [employer] 01/01/2023 14:23:54 IPV 9 completed Becca Lunenburg null, [employer] 01/01/2023 14:23:54 MMR 6 completed Becca Cachorro null, [employer] 01/01/2023 14:23:54 MMR 9 completed Becca Cachorro null, [employer] 01/01/2023 14:23:54 pneumococcal conjugate PCV 7 5 completed Becca Lunenburg null, [employer] 01/01/2023 14:23:54 pneumococcal conjugate PCV 7 6 completed Becca Lunenburg null, [employer] 01/01/2023 14:23:54 pneumococcal conjugate PCV 7 5 completed Becca Cachorro null, [employer] 01/01/2023 14:23:54 pneumococcal conjugate PCV 7 4 completed Becca Lunenburg null, [employer] 01/01/2023 14:23:54 Tdap 7 completed Becca Cachorro null, [employer] 01/01/2023 14:23:54 varicella 9 completed Becca Cachorro null, [employer] 01/01/2023 14:23:54 varicella 5 completed Becca Cachorro null, [employer] 01/01/2023 14:23:54 HBIG 4 completed Becca Lunenburg null, [employer] 01/01/2023 14:23:54 Hep B, adolescent or pediatric 4 completed Becca Lunenburg null, [employer] 01/01/2023 14:23:54 Hep A, ped/adol, 2 dose 9 completed Becca Cachorro null, [employer] 01/01/2023 14:23:54 Hep A, ped/adol, 2 dose 8 completed Becca Lunenburg null, [employer] 01/01/2023 14:23:54 Hib (PRP-OMP) 5 completed Becca Cachorro null, [employer] 01/01/2023 14:23:54 Hib (PRP-OMP) 5 completed Becca Lunenburg null, [employer] 01/01/2023 14:23:55 Hib (PRP-OMP) 4 completed Becca Lunenburg null, [employer] 01/01/2023 14:23:55 meningococcal MCV4P 7 completed Becca Lunenburg null, [employer] 01/01/2023 14:23:55 meningococcal MCV4P 0 completed Becca Cachorro null, [employer] 01/01/2023 14:23:55 DTaP, unspecified formulation 5 completed Becca Cachorro null, [employer] 01/01/2023 14:23:55 DTaP, unspecified formulation 6 completed Becca Lunenburg null, [employer] 01/01/2023 14:23:55 DTaP, unspecified formulation 9 completed Becca Lunenburg null, [employer] 01/01/2023 14:23:55 meningococcal MCV4, unspecified formulation 7 completed Becca Lunenburg null, [employer] 01/01/2023 14:23:55 DTaP-Hep B-IPV 5 completed Becca Lunenburg null, [employer] 01/01/2023 14:23:55 DTaP-Hep B-IPV 4 completed Becca Lunenburg null, [employer] 01/01/2023 14:23:55 Influenza, split virus, quadrivalent, PF 8 completed Becca Lunenburg null, [employer] 01/01/2023 14:23:55 Past Encounters Encounter ID Performer Location Encounter Start Date Encounter Closed Date Diagnosis/Indication Diagnosis SNOMED-CT Code Diagnosis ICD10 Code Diagnosis IMO Codes Diagnosis Note [id number] Marcella Cash APRN [address] [address] 01/01/2023 13:45:54 01/01/2023 14:49:34 Insomnia 502878838 G47.00 Depressive disorder 3548 9007 F32.A Fatigue 52267714 R53.83 Body mass index 30+ - obesity 197474088 Z68.42 [id number] [place] [address] 02/18/2024 10:36:30 02/18/2024 11:34:19 Fatigue 96236827 R53.83 Hyperglycemia 34369016 R 73.9 Hyperlipidemia 52413883 E78.5 Vitamin D deficiency 347 31347 E55.9 Iron defic iency anemia 58162037 D50.9 Moderate r ecurrent major depression 75079169 F33.1 Body mass index 40+ - severely obese 037505919 Z68.41 [id number] [place] [address] 03/13/2024 09:25:39 03/13/2024 10:09:36 Acute mesenteric adenitis 34320449 I88.0 Colitis 64169124 K52.9 Nicotine dependence 5629 4008 F17.200 Body mass index 40+ - severely obese 612646557 Z68.41 [id number] [place] [address] 03/20/2024 16:20:40 03/20/2024 16:44:37 Moderate recurrent major depression 82602117 F33.1 Uses depot contraception 987373089 Z30.013 Body mass index 40+ - severely obese 437112850 Z68.41 [id number] [place] [address] 04/06/2024 15:07:39 04/06/2024 15:45:10 Dysuria 48825290 R30.0 Acute urin antonio tract infection 322380709 N39.0 Body mass index 40+ - severely obese 474812279 Z68.41 [id number] Marcella Cash [place] [address] 0 05/26/2024 14:55:04 05/26/2024 16:15:29 Urinary symptoms 039107299 R39.9 Acute urin antonio tract infection 114281738 N39.0 Body mass index 40+ - severely obese 074674027 Z68.41 [id number] JERARDO Hahn [address] [address] 10/06/2024 09:21:33 10/06/2024 10:00:49 Adult health examination 170617518 Z00.00 HIV screening 454945919 Z11.4 Hepatitis C screening 41 3233544 Z11.59 Body mass index 40+ - severely obese 322399181 Z68.43 [id number] JERARDO Hahn [address] [address] 01/15/2025 12:58:38 01/15/2025 13:33:40 Ganglion cyst of right wrist 7614880116 69948 M67.431 cleared for surgical interventi on Depressive disorder 3548 9007 F33.1 Body mass index 40+ - severely obese 132844394 Z68.42 Vitamin D deficiency 347 83490 E55.9 [id number] SALTY PINEDA NP [address] [address] 02/10/2025 13:12:57 02/10/2025 14:05:36 Dysuria 10657996 R30.0 65503 Abdominal bloating 05534 9008 R14.0 91177 OTC simethicon e as directed on package. [id number] JERARDO Hahn [address] [address] 03/12/2025 09:02:03 03/12/2025 09:29:42 Acute suppurative otitis media without spontaneous rupture of ear drum 39917793 H66.001 6068858984 Acute cough 5158857679 12293611 R05.3 3147046795 Solar erythema 380088988 L55.9 501 [id number] JERARDO Hahn [address] [address] 04/23/2025 08:15:13 04/23/2025 08:38:20 Body mass index 40+ - severely obese 079426935 Z68.43 870767 Encouraged 20 minutes of exercise a dayWill start counting/l ogging calories and bring to next appointmen t [id number] JERARDO Hahn [address] [address] 06/04/2025 09:42:24 06/04/2025 10:04:11 Body mass index 40+ - severely obese 748146620 Z68.43 Anxiety 77146133 F41.9 37617 [id number] JERARDO Hahn [address] [address] 06/17/2025 16:23:00 06/17/2025 17:14:12 Dysuria 78267863 R30.0 42651 Snoring 51295935 R06.83 42489 Body mass index 40+ - severely obese 647568808 Z68.43 [id number] Controlled substance agreement signed today [id number] JERARDO Hahn [address] [address] 07/16/2025 11:26:23 07/16/2025 11:55:07 Body mass index 40+ - severely obese 717309894 Z68.43 [id number] Health Concerns Section Related Observation LastModified by Organization Detai ls LastModified Time None Recorded Concern Status LastModified by Organization Details LastModified Time None Recorded Advance Directives Directive N: Payers Insurance Date Sequence Insurance Name Policy Number Policy Lovelace Covered Member ID Lovelace Member ID Guarantor Name 07/19/2025 1 [facility] (MEDICAID REPLACEMENT - HMO) [place] Daniel Velasquez [id number] Daniel Velasquez 08/08/2023 1 UNSPECIFIED REMIT PAYOR Daniel Velasquez 02/18/2024 1 *SELF PAY* Honey Velasquez Notes Date Note Type Note Provider Name and Address Organization Details Recorded Time 03/12/2025 text/html ROS as noted in the HPI Right ear pain, nasal congestion, sore throat, cough, body aches X 4 days. Nausea but no vomiting or diarrhea. Has bad sunburn on back as well - states it is the worse she's ever had. Can't get comfortable to sleep. JERARDO Hahn [address] [place] [address], [phone], [employer] 03/12/2025 09:45:36 04/23/2025 text/html ROS as noted in the HPI Patient presents to discuss options for weight loss.States she has been trying to lose weight. Has been trying to exercise. She is not counting calories. JERARDO Hahn [address] [place], [address], [employer] 04/23/2025 09:24:25 06/04/2025 text/html [facility] Patient presents for followup. SHe is trying to lose weight. SHe has quit drinking pop. She has lost 6 pounds.Needs a letter for an emotional support animal for her cats due to her anxiety and depression. JERARDO Hahn [address] [place], [address], [employer] 06/04/2025 11:25:49 06/17/2025 text/html ROS as noted in the HPI Patient would like to try something different for weight loss. Wegovy was very expensive.She states she snores and is tired all the timeDYsuria X 3 days. No nausea/vomiting. No fever. JERARDO Hahn [address] [place], [address], [employer] 06/18/2025 17:01:09 07/16/2025 text/html [facility] Patient presents for followup. Taking Adipex for weight loss. Has lost 15 pounds. Doing well. JERARDO Hahn [address] [place], [address], [employer] 07/16/2025 12:54:20 OBGyn Episode No OBEpisode recorded.
--- OUTSIDE RECORDS SUMMARY | 2025-08-07 10:31 | XMS_ITS | Clinical Summary ---
Author Organization [facility] Address [address] [place] [address] Care Team Providers Care Flight Follower Name Role Phone ShaileshHeena Nael KURTZ Primary Care Provider [phone] Allergies No known active allergies Medications methylPREDNISolo [...] mouth daily. 5 Active ergocalciferol 1.25 MG (49791 UT) capsule Take 1 capsule by mouth [...] Description 05/17/2025 4:00 PM EDT Office Visit [facility] [address], [address] [place] [phone] Nam Emanuel MD Chronic bilateral low back pain with left-sided sciatica (Primary Dx); Degeneration of intervertebral disc of lumbar region with discogenic back pain and lower extremity pain; Herniated nucleus pulposus, thoracic 05/17/2025 3:42 PM EDT - 05/17/2025 11:59 PM EDT Hospital Encounter [facility] [address] [facility], [address] [place] [phone] Discharge Disposition: Home or Self Care 05/17/2025 3:40 PM EDT - 05/17/2025 3:41 PM EDT Hospital Encounter [facility] [address] [facility], [address] [place] [phone] Chronic bilateral low back pain with left-sided sciatica; Degeneration of intervertebral disc of lumbar region with discogenic back pain and lower extremity pain; Herniated nucleus pulposus, thoracic Discharge Disposition: Home or Self Care 05/17/2025 Travel from Last 3 Months Immunizations Immunization [...] SDOH Screenings 2022 [facility]-Adult SDOH Screenings 2022 [id number] Vaccine ( season) 2025 [facility]-Influenza Vaccine (#1) 2025 09/15/2018 [facility]-Pap Smear 2025 [facility]-Depression Screening 05/17/2026 05/17/2025 [facility]-DTaP,Tdap,and Td Vaccines [...] HIV 1/2 Differentiation (04/05/2024 11:52 PM EDT) [facility] HIV 1 & 2 Antibody/Antigen Screen Non Reactive Non Reactive 04/06/2024 12:55 AM EDT [facility] Comment:Screening for HIV 1 & 2 antibodies, and P24 antigen is NONREACTIVE. No confirmatory testing is required. Blood Venous blood specimen / Unknown Venipuncture / Unknown 04/05/2024 11:52 PM EDT 04/05/2024 11:55 PM EDT Result [facility] Ajith Leary MD LAB BLOOD ORDERABLES Final Re sult Performing Organization Address [facility] Co de Phone Number [facility] [address] [place] [address] * Hepatitis C Antibody - ED (04/05/2024 11:52 PM EDT) [facility] Hepatitis C Antibody Negative Negative 04/06/2024 12:55 AM EDT [facility] Blood Venous blood specimen / Unknown Venipuncture / Unknown 04/05/2024 11:52 PM EDT 04/05/2024 11:55 PM EDT us Ajith Leary MD LAB BLOOD ORDERABLES Final Re sult Performing Organization Address City/[facility] Co de Phone Number [facility] [address] [place] [address] from Last 3 Months or Most Recently Relevant to Health Maintenance Insurance [facility] MEDICAID Advance Directives * Full Code (Latest Code Status on File) Date Activated Date Inactivated Comments 03/18/2025 9:00 AM 03/19/2025 12:01 AM Question Answer Comments I have reviewed the capacity from the link above and, if needed, have updated to appropriate status: Yes Care Teams Flight Follower Relationship Specialty Start Date End Date Heena Cash PA [address] [place] [address] PCP - General 04/30/25
--- OUTSIDE RECORDS SUMMARY | 2025-08-07 10:31 | XMS_ITS | Continuity of Care Document ---
Author Organization [place] - [employer], [facility] Address [address] [place] [address] Assessment No assessment recorded. Plan of Treatment Reminders Order Date Submit Date Provider Last Modified By Organization Details Last Modified Time Details Appointments FOLLOW UP 30 2024 01:00P Abiola Cash PA-C Not available Not available Not available Lab urinalysi s, dipstick 2024 025 [email or web address] [facility], [address] [facility], [place], [address], 06/17/2025 17:19:31 culture, urine 2024 025 [facility], [address] [place] [address], [address], 06/19/2025 03:06:54 Referral None recorded. Procedures None recorded. Surgeries None recorded. Imaging home sleep study [email or web address] Home Sleep Study (Verified Jul 28), [address] [facility], [place], [address], 07/13/2025 10:40:16 Medication Orders Adipex-P 37.5 mg tablet 2024 025 [facility], [address] [facility], [place], [place], [address], 06/17/2025 17:13:44 Patient TargetsNo targets recorded. Patient Instructions Encounter Date Encounter Id Patient Instructions Last Modified By Organization Details Last Modified Time 06/17/2025 [id number] body mass index: care instructions [email or web address] Not available 06/17/2025 17:13:38 learning about healthy weight Not available 06/17/2025 17:13:38 painful urinatio n (dysuria): care instructions [email or web address] Not available 06/17/2025 16:56:02 snoring: care instructions Not available 06/17/2025 17:13:39 Reason for Referral None Reported. Results Created Date Observation Date Name Description Value Unit Range Abnormal Flag Note LastModifiedBy Organization Detail LastModifiedTime 06/17/2006/19/2025 URINE CULTU RE, ADORE NE urine culture, routine Final report Not Available [facility] ([facility]) [address] [facility], [place], [address], 06/19/2025 03:06:54 06/17/2006/19/2025 URINE CULTU RE, HERRERAI NE result 1 COMMEN T Mixed uroge nital renee Less than 10,00 0 colon ies/m L Not Available [facility] ([facility]) [address] [facility], [place], [address], 06/19/2025 03:06:54 06/17/20 25 06/17/2025 urina lysis , dipst ick Leukocytes Negati ve Not Available [facility] [address] [place] [address], [address], 06/17/2025 16:55:04 06/17/2006/17/2025 urina lysis , dipst ick Nitrite negati ve Not Available [facility] [address] [place] [address], [address], 06/17/2025 16:55:04 06/17/20 25 06/17/2025 urina lysis , dipst ick Urobilinogen 1 Not Available [facility] [address] [place], [address], 06/17/2025 16:55:04 06/17/20 25 06/17/2025 urina lysis , dipst ick Protein Negati ve Not Available [address], [place], [address], 06/17/2025 16:55:04 06/17/20 25 06/17/2025 urina lysis , dipst ick pH 6.0 Not Available [address], [place], [address], 06/17/2025 16:55:04 06/17/20 25 06/17/2025 urina lysis , dipst ick Blood Negati ve Not Available [address], [place], [address], 06/17/2025 16:55:04 06/17/20 25 06/17/2025 urina lysis , dipst ick Specific [place] 1.025 Not Available [address], [place], [address], 06/17/2025 16:55:04 06/17/20 25 06/17/2025 urina lysis , dipst ick Ketone Negati ve Not Available [address], [place], [address], 06/17/2025 16:55:04 06/17/20 25 06/17/2025 urina lysis , dipst ick Bilirubin Negati ve Not Available [address], [place], [address], 06/17/2025 16:55:04 06/17/20 25 06/17/2025 urina lysis , dipst ick Glucose Negati ve Not Available [address], [place], [address], 06/17/2025 16:55:04 06/17/2006/17/2025 urina lysis , dipst ick Appearance Clear Not Available [facility] [place] [address] [facility], [place], [address], 06/17/2025 16:55:04 06/17/2006/17/2025 urina lysis , dipst ick Color Yellow Not Available [facility] [address] [facility], [place], [address], 06/17/2025 16:55:04 06/30/2006/30/2025 , jose thompson No observ ation record ed. [email or web address] [facility] [address], [place], [address], 07/01/2025 09:57:57 Result Notes None recorded. Problems Name Problem SNOMED Code Status Onset Date Resolution Date Notes Provider Name and Address Organization Details Recorded Time Dysuria 63829853 Completed 202301/15/2025 SALTY PINEDA NP [address] [place] [address], [address], [employer] 14:27:25 Vitamin D deficienc y 56580403 Active 2024 JERARDO Hahn [address] [place] [address], [address], [place] [employer] 13:29:40 Ganglion cyst of right wrist 593775306693 109 Active 2024 JERARDO Hahn [address] [place] [address], [address], [employer] 13:29:36 Abdominal bloating 215328536 Active 2024 SALTY PINEDA NP [address] [place] [address], [address], [employer] 14:08:32 Dysuria 87841796 Active 2024 SALTY PINEDA, CRYSTAL [address] [place] [address], 28[address] 8, [employer] 5 14:27:25 Acute suppurati ve otitis media without spontaneo us rupture of ear drum 03317293 Active 2024 JERARDO Hahn [address] [place] [address], [address] 8, [employer] 5 09:29:51 Acute cough Active 2024 JERARDO Hahn [address] [place] [address], [address] 8, [employer] 5 09:29:57 Sunburn of first degree 284557507 Active 2024 JERARDO Hahn [address] [place] [address], [address], [employer] 5 09:30:01 Solar erythema 957771406 Active 2024 JERARDO Hahn [address] [place] [address], [address] 8, [employer] 5 09:30:02 Anxiety 43435395 Active 2024 JERARDO Hahn [address] [place] [address], [address] 8, [employer] 5 10:01:03 Snoring 92114584 Active 2024 JERARDO Hahn [address] [place] [address], [address] 8, [employer] 17:12:52 Problem Notes None recorded. Procedures Surgical History Date Name Laterality Status Provider Name and Address Organization Details Recorded Time excision of ganglion cyst of wrist completed Yasmine Foley [employer] 02/10/2025 13:30:54 Imaging Results None recorded. [...] Available Not Available Vitals Date Recorded Body mass index (BMI) Body mass index (BMI) [Percentile] Per age and sex Body weight Heart rate Oxygen saturation Oxygen saturation in Arterial blood by Pulse oximetry Body temperature Systolic And Diastolic Provider Name and Address Organization Details Last Updated DateTime 5 56.7 kg/m2 99 % 588846. 59 g 94 /min 96 % 96 % 98.1 [degF] 108/63 mm[Hg] Yasmine Foley [facility] [employer] 17:04:27 Date Recorded Body height Provider Name an d Address Organization Details Last Updated DateTime 06/17/2025 152.4 cm [facility] [employer] 06/17/2025 16:55:11 Social History Question Answer Notes LastModified by Organizat ion Details LastModified Time Tobacco Smoking Status Never Smoker Yasmine cortez [employer] 07/16/2025 11:45:07 Do You Have An Advance Directive? No Information n ot available 10/06/2024 Is Your Home Air Conditioned? Yes Information not available 02/18/2024 If You Are , What Was Your Level Of Alcohol Consumption Prior To ? None Information not available 10/06/2024 How Many Years Have You Consumed Alcohol? 3 Information not available 10/06/2024 Do You Wear A Helmet When Biking? No [email or web address] Information not available 05/26/2024 Are You Blind Or Do You Have Difficulty Seeing? No Information n ot available 02/18/2024 What Is Your Level Of Caffeine Consumption? None Information not available 07/16/2025 Are You A Caregiver? No Information not available 02/18/2024 What Type Of Risk Control Specialist Do You Use? None Information not available [...] Type Of Diet Are You Following? REGULAR [email or web address] Information n ot available 05/26/2024 What Is The Highest Grade Or Level Of School You Have Completed Or The Highest Degree You Have Received? EP73351-1 [email or web address] Information not available 07/16/2025 Who Is Your Employer? [employer] Information not available 02/18/2024 Have There Been Any Changes To Your Family Or Social Situation? No Information no t available 10/06/2024 Are There Any Guns Present In Your Home? No Information not available 10/06/2024 Which Of Your Hands Is Dominant? Right Information n ot available 10/06/2024 Do You Engage In Moderate/heavy Exercise (e.g. Brisk Walk, Jogging, Strength Training, Etc)? No [email or web address] Information not available 07/16/2025 How Many Times In The Past Year Have You Used An Illegal Drug Or Used A Prescription Medication For Nonmedical Reasons? 0 Information not available 07/16/2025 Where Do You Live? Apartment Inform ation not available 07/16/2025 Do You Have A Medical Power Of Faculty Dean? No Information not available 10/06/2024 What Was The Date Of Your Most Recent Tobacco Screening? 07/16/2025 [email or web address] Information not available 07/16/2025 Are There Any [...] When Driving Or As A Passenger? Yes [email or web address] Information not available 07/16/2025 Do You Use [...] Do You Participate In Social Media? Yes [email or web address] Information not available 05/26/2024 What Types Of Sporting Activities Do You Participate In? N/A Information not available 07/16/2025 Do You Use Sunscreen Routinely? No Information not available 10/06/2024 Has Tobacco Cessation Counseling Been Provided? Yes Information not available 02/18/2024 On What Date Was Tobacco Cessation Counseling Provided? 07/16/2025 [email or web address] Information not available 07/16/2025 How Many Years Have You Smoked Tobacco? 12 Information not available 10/06/2024 Have You Recently Traveled Abroad? No Information not available 02/18/2024 Do You Have Difficulty Walking Or Climbing Stairs? No Information not available 02/18/2024 Are You Currently In School? No Information not available 10/06/2024 What Contraceptive Method Was Reported At Start Of This Visit? None [email or web address] Information not available 07/16/2025 Do You Feel Safe In Your Home? Yes [email or web address] Information not available 07/16/2025 Do You Have Any Dietary Restrictions? No [email or web address] Information not available 05/26/2024 How Many Days In The Past Year Have You Consumed 4 Or More Drinks? 2 Information not available 10/06/2024 What Is Your Reason For Having No Contraceptive Method At Start Of This Visit? Same Sex Partner [email or web address] Information not available 07/16/2025 Sex: Female Functional [...] 02/18/2024 What is your exercise level? Occasional [email or web address] Information not available 05/26/2024 Do you use any illicit or recreational drugs? No Information not available 02/18/2024 Do you feel safe in your relationship? Yes [email or web address] Information not available 07/16/2025 Do you or [...] anxious, or unable to sleep at night)? [id number] Information not available 07/16/2025 Do you have [...] History Condition Response Coronary Artery Disease N Gout N Other N Blood Diseases N Kidney Stones N Hyperthyroidism N Breast Cancer N Blood Transfusion N Emergency room visit since last appointm ent. N Hypothyroidism N Lung Disease N Dermatologic Disorders N Depression N COPD N Defects or Inherited Disease N Developmental or Behavioral Disorders N Breast Problem N Difficulty Swallowing N [...] N High Cholesterol N Liver Disease N Organ Transplant N Psychiatric/Mental Health Condition N Fibromyalgia N Dialysis N Schizophrenia N [...] N Pulmonary Embolism N Tourette Syndrome N Chronic Ear Infections N Pre-Eclampsia N Hypertension N Chicken Pox N Autism Spectrum Disorder (ASD) N Osteoporosis N Thrombophilias N Gynecological History Statement/Question Response [...] Details Recorded Time HPV9 7 completed Becca Ivory null, [employer] 01/01/2023 14:23:54 HPV9 8 completed Becca Ivory null, [employer] 01/01/2023 14:23:54 IPV 5 completed Becca Riose null, [employer] 01/01/2023 14:23:54 IPV 9 completed Becca Ivory null, [employer] 01/01/2023 14:23:54 MMR 6 completed Becca Cachorro null, [employer] 01/01/2023 14:23:54 MMR 9 completed Becca Kershaw null, [employer] [facility] [facility] [employer] 01/01/2023 14:23:54 pneumococcal conjugate PCV 7 5 completed Becca Kershaw null, [employer] [facility] [employer] 01/01/2023 14:23:54 pneumococcal conjugate PCV 7 6 completed Becca Kershaw null, [employer] [facility] [facility] 01/01/2023 14:23:54 pneumococcal conjugate PCV 7 5 completed Becca Kershaw null, [employer] 01/01/2023 14:23:54 pneumococcal conjugate PCV 7 4 completed Becca Cachorro null, [employer] 01/01/2023 14:23:54 Tdap 7 completed Becca Cachorro null, [employer] 01/01/2023 14:23:54 varicella 9 completed Becca Cachorro null, [employer] 01/01/2023 14:23:54 varicella 5 completed Becca Kershaw null, [employer] 01/01/2023 14:23:54 HBIG 4 completed Becca Cachorro null, [employer] [facility] [facility] [employer] 01/01/2023 14:23:54 Hep B, adolescent or pediatric 4 completed Becca Kershaw null, [employer] [facility] [employer] 01/01/2023 14:23:54 Hep A, ped/adol, 2 dose 9 completed Becca Cachorro null, [facility] [employer] 01/01/2023 14:23:54 Hep A, ped/adol, 2 dose 8 completed Becca Kershaw null, [employer] 01/01/2023 14:23:54 Hib (PRP-OMP) 5 completed Becca Cachorro null, [employer] 01/01/2023 14:23:54 Hib (PRP-OMP) 5 completed Becca Kershaw null, [employer] 01/01/2023 14:23:55 Hib (PRP-OMP) 4 completed Becca Kershaw null, [employer] 01/01/2023 14:23:55 meningococcal MCV4P 7 completed Becca Kershaw null, [employer] 01/01/2023 14:23:55 meningococcal MCV4P 0 completed Becca Cachorro null, [employer] 01/01/2023 14:23:55 DTaP, unspecified formulation 5 completed Becca Cachorro null, [employer] 01/01/2023 14:23:55 DTaP, unspecified formulation 6 completed Becca Kershaw null, [employer] 01/01/2023 14:23:55 DTaP, unspecified formulation 9 completed Becca Kershaw null, [employer] 01/01/2023 14:23:55 meningococcal MCV4, unspecified formulation 7 completed Becca Kershaw null, [employer] 01/01/2023 14:23:55 DTaP-Hep B-IPV 5 completed Becca Kershaw null, [employer] 01/01/2023 14:23:55 DTaP-Hep B-IPV 4 completed Becca Cachorro null, [employer] 01/01/2023 14:23:55 Influenza, split virus, quadrivalent, PF 8 completed Becca Kershaw null, [employer] 01/01/2023 14:23:55 Past Encounters Encounter ID Performer Location Encounter Start Date Encounter Closed Date Diagnosis/Indication Diagnosis SNOMED-CT Code Diagnosis ICD10 Code Diagnosis IMO Codes Diagnosis Note [id number] JERARDO Hahn [facility] [address] [place] [address] 06/04/2025 09:42:24 06/04/2025 10:04:11 Body mass index 40+ - severely obese 065503320 Z68.43 Anxiety 55818152 F41.9 64340 [id number] JERARDO Hahn [facility] [address] [place] [address] 06/17/2025 16:23:00 06/17/2025 17:14:12 Dysuria 53712737 R30.0 41094 Snoring 31822335 R06.83 52146 Body mass index 40+ - severely obese 606521655 Z68.43 772730 Controlled substance agreement signed today Health Concerns Section Related Observation LastModified by Organization Detai ls LastModified Time None Recorded Concern Status LastModified by Organization Details LastModified Time None Recorded Payers Encounter Date Sequence Insurance Name Policy Number Policy Lovelace Covered Member ID Lovelace Member ID Guarantor Name 06/17/2025 1 [facility] (MEDICAID REPLACEMENT - HMO) [place] Daniel Velasquez [id number] Daniel Velasquez Notes Date Note Type Note Provider Name and Address Organization Details Recorded Time 06/17/2025 text/html ROS as noted in the HPI Patient would like to try something different for weight loss. Wegovy was very expensive.She states she snores and is tired all the timeDYsuria X 3 days. No nausea/vomiting. No fever. JERARDO Hahn [address] [place] [address], [address], [place] [employer] [facility] 06/18/2025 17:01:09 OBGyn Episode No OBEpisode recorded.
--- OUTSIDE RECORDS SUMMARY | 2025-08-07 10:31 | XMS_ITS | Continuity of Care Document ---
Author Organization MD - [facility], [facility] Address [address] [place] [address] Assessment No assessment recorded. Plan of Treatment Reminders Order Date Submit Date Provider Last Modified By Organization Details Last Modified Time Details Appointments FOLLOW UP 30 2024 01:00P Abiola Cash PA-C Not available Not available Not available Lab None recorded . Referral None recorded . Procedures None recorded . Surgeries None recorded . Imaging None recorded . Medication Orders Adipex-P 37.5 mg tablet 2024 025 [id number], [address] , [place], [place], [id number], 07/16/2025 11:58:00 Patient TargetsNo targets recorded. Patient Instructions Encounter Date Encounter Id Patient Instructions Last Modified By Organization Details Last Modified Time 07/16/2025 [id number] body mass index: care instructions Not available 07/16/2025 11:57:51 learning about healthy weight Not available 07/16/2025 11:57:51 Reason for Referral None Reported. Results Created Date Observation Date Name Description Value Unit Range Abnormal Flag Note LastModifiedBy Organization Detail LastModifiedTime 06/17/2006/19/2025 URINE CULTU [place] urine culture, routine Final report Not Available [facility] ([facility]) [address] [facility] [address], [place], [address], 06/19/2025 03:06:54 06/17/2006/19/2025 URINE CULTU [place] result 1 COMMEN T Mixed uroge nital renee Less than 10,00 0 colon ies/m L Not Available [facility] ([facility]) [address] [facility] [address], [place], [address], 06/19/2025 03:06:54 06/17/2006/17/2025 urina lysis , dipst ick Leukocytes Negati ve Not Available [address], [place], [address], 06/17/2025 16:55:04 06/17/20 25 06/17/2025 urina lysis , dipst ick Nitrite negati ve Not Available [address], [place], [address], 06/17/2025 16:55:04 06/17/2006/17/2025 urina lysis , dipst ick Urobilinogen 1 Not Available [address], [place], [address], 06/17/2025 16:55:04 06/17/2006/17/2025 urina lysis , dipst ick Protein Negati ve Not Available [address], [place], [address], 06/17/2025 16:55:04 06/17/2006/17/2025 urina lysis , dipst ick pH 6.0 Not Available [address], [place], [address], 06/17/2025 16:55:04 06/17/2006/17/2025 urina lysis , dipst ick Blood Negati ve Not Available [address], [address], 06/17/2025 16:55:04 06/17/20 25 06/17/2025 urina lysis , dipst ick Specific Sieper 1.025 Not Available [address], [place], [address], 06/17/2025 16:55:04 06/17/20 25 06/17/2025 urina lysis , dipst ick Ketone Negati ve Not Available [address], [place], [address], 06/17/2025 16:55:04 06/17/2006/17/2025 urina lysis , dipst ick Bilirubin Negati ve Not Available [address], [place], [address], 06/17/2025 16:55:04 06/17/2006/17/2025 urina lysis , dipst ick Glucose Negati ve Not Available [address], [place], [address], 06/17/2025 16:55:04 06/17/2006/17/2025 urina lysis , dipst ick Appearance Clear Not Available [address], [place], [address], 06/17/2025 16:55:04 06/17/2006/17/2025 urina lysis , dipst ick Color Yellow Not Available [address], [place], [address], 06/17/2025 16:55:04 06/30/20 25 06/30/2025 US, trans shemar al No observ ation record ed. [email or web address] [facility] [address], [place], [address], 07/01/2025 09:57:57 Result Notes None recorded. Problems Name Problem SNOMED Code Status Onset Date Resolution Date Notes Provider Name and Address Organization Details Recorded Time Dysuria 13301896 Completed 202301/15/2025 SALTY PINEDA NP [address] [place] [address], [address], [employer] 14:27:25 Vitamin D deficienc y 42628165 Active 2024 JERARDO Hahn [address] [place] [address], [address], [employer] 13:29:40 Ganglion cyst of right wrist 398707337614 109 Active 2024 JERARDO Hahn [address] [place] [address], [address], [employer] 13:29:36 Abdominal bloating 763217236 Active 2024 SALTY PINEDA NP [address] [place] [address], [address], [employer] 14:08:32 Dysuria 19259030 Active 2024 SALTY PINEDA NP [address] [place] [address], [address] 8, [employer] 14:27:25 Acute suppurati ve otitis media without spontaneo us rupture of ear drum 03846541 Active 2024 JERARDO Hahn [address] [place] [address], [address] 8, [employer] 5 09:29:51 Acute cough Active 2024 JERARDO Hahn [address] [place] [address], [address] 8, [employer] 5 09:29:57 Sunburn of first degree 718770429 Active 2024 JERARDO Hahn [address] [place] [address], [address], [employer] 5 09:30:01 Solar erythema 751810185 Active 2024 JERARDO Hahn [address] [place], [address], [employer] 5 09:30:02 Anxiety 31015763 Active 2024 JERARDO Hahn [address] [place], [address], [employer] 5 10:01:03 Snoring 14997503 Active 2024 JERARDO Hahn [address] [place], [address], [employer] 5 17:12:52 Problem Notes None recorded. Procedures Surgical History Date Name Laterality Status Provider Name and Address Organization Details Recorded Time excision of ganglion cyst of wrist completed Yasmine Foley [employer] 02/10/2025 13:30:54 Imaging Results None recorded. [...] and Address Organization Details Last Updated DateTime 152.4 cm 53.8 kg/m2 270644 g 98.3 [degF] 90 /min 99 % 99 % 107/72 mm[Hg] Yasmine Foley [employer] 11:49:08 Social History Question Answer Notes LastModified by Organizat ion Details LastModified Time Tobacco Smoking Status Never Smoker Yasmine Og cortez [employer] 07/16/2025 11:45:07 Do You Have An Advance Directive? No Information n ot available 10/06/2024 Is Your Home Air Conditioned? Yes Information not available 02/18/2024 If You Are , What Was Your Level Of Alcohol Consumption Prior To ? None Information not available 10/06/2024 How Many Years Have You Consumed Alcohol? 3 Information not available 10/06/2024 Do You Wear A Helmet When Biking? No [email or web address] Information not available 05/26/2024 Are You Blind Or Do You Have Difficulty Seeing? No Information n ot available 02/18/2024 What Is Your Level Of Caffeine Consumption? None [email or web address] Information not available 07/16/2025 Are You A Caregiver? No Information not available 02/18/2024 What Type Of Verifier Do You Use? None Information not available [...] Type Of Diet Are You Following? REGULAR [email or web address] Information n ot available 05/26/2024 What Is The Highest Grade Or Level Of School You Have Completed Or The Highest Degree You Have Received? [id number] [email or web address] Information not available 07/16/2025 Who Is Your [...] Brisk Walk, Jogging, Strength Training, Etc)? No [email or web address] Information not available 07/16/2025 How Many Times In The Past Year Have You Used An Illegal Drug Or Used A Prescription Medication For Nonmedical Reasons? 0 [email or web address] Information not available 07/16/2025 Where Do You Live? Apartment Inform ation not available 07/16/2025 Do You Have A Medical Power Of Data Compiler? No Information not available 10/06/2024 What Was The Date Of Your Most Recent Tobacco Screening? 07/16/2025 [email or web address] Information not available 07/16/2025 Are There Any [...] When Driving Or As A Passenger? Yes Information not available 07/16/2025 Do You Use [...] Do You Participate In Social Media? Yes [email or web address] Information not available 05/26/2024 What Types Of Sporting Activities Do You Participate In? N/A Information not available 07/16/2025 Do You Use Sunscreen Routinely? No Information not available 10/06/2024 Has Tobacco Cessation Counseling Been Provided? Yes Information not available 02/18/2024 On What Date Was Tobacco Cessation Counseling Provided? 07/16/2025 [email or web address] Information not available 07/16/2025 How Many Years Have You Smoked Tobacco? 12 Information not available 10/06/2024 Have You Recently Traveled Abroad? No Information not available 02/18/2024 Do You Have Difficulty Walking Or Climbing Stairs? No Information not available 02/18/2024 Are You Currently In School? No Information not available 10/06/2024 What Contraceptive Method Was Reported At Start Of This Visit? None Information not available 07/16/2025 Do You Feel Safe In Your Home? Yes [email or web address] Information not available 07/16/2025 Do You Have Any Dietary Restrictions? No [email or web address] Information not available 05/26/2024 How Many Days In The Past Year Have You Consumed 4 Or More Drinks? 2 Information not available 10/06/2024 What Is Your Reason For Having No Contraceptive Method At Start Of This Visit? Same Sex Partner [email or web address] Information not available 07/16/2025 Sex: Female Functional Status Question Answer Note LastModified by [employer] ion Details LastModified Time How many times [...] 02/18/2024 What is your exercise level? Occasional [email or web address] Information not available 05/26/2024 Do you use any illicit or recreational drugs? No Information not available 02/18/2024 Do you feel safe in your relationship? Yes [email or web address] Information not available 07/16/2025 Do you or [...] anxious, or unable to sleep at night)? [id number] [email or web address] Information not available 07/16/2025 Do you have [...] ent. N Hypothyroidism N Lung Disease N COPD N Depression N Dermatologic Disorders N Defects or Inherited Disease N Developmental [...] Psychiatric/Mental Health Condition N Organ Transplant N Dialysis N Fibromyalgia N Schizophrenia N Headaches N Kidney Disease [...] Time HPV9 7 completed Becca Cachorro null, [employer] [facility] [email or web address] 01/01/2023 14:23:54 HPV9 8 completed Becca Pickett null, [employer] 01/01/2023 14:23:54 IPV 5 completed Becca Pickett null, [employer] 01/01/2023 14:23:54 IPV 9 completed Becca Pickett null, [employer] 01/01/2023 14:23:54 MMR 6 completed Becca Cachorro null, [employer] 01/01/2023 14:23:54 MMR 9 completed Becca Pickett null, [employer] 01/01/2023 14:23:54 pneumococcal conjugate PCV 7 5 completed Becca Cachorro null, [employer] 01/01/2023 14:23:54 pneumococcal conjugate PCV 7 6 completed Becca Pickett null, [employer] 01/01/2023 14:23:54 pneumococcal conjugate PCV 7 5 completed Becca Pickett null, [employer] 01/01/2023 14:23:54 pneumococcal conjugate PCV 7 4 completed Becca Pickett null, [employer] 01/01/2023 14:23:54 Tdap 7 completed Becca Pickett null, [employer] 01/01/2023 14:23:54 varicella 9 completed Becca Pickett null, [employer] 01/01/2023 14:23:54 varicella 5 completed Becca Cachorro null, [employer] 01/01/2023 14:23:54 HBIG 4 completed Becca Cachorro null, [employer] [facility] [employer] 01/01/2023 14:23:54 Hep B, adolescent or pediatric 4 completed Becca Cachorro null, [employer] [facility] [employer] 01/01/2023 14:23:54 Hep A, ped/adol, 2 dose 9 completed Becca Pickett null, [employer] 01/01/2023 14:23:54 Hep A, ped/adol, 2 dose 8 completed Becca Pickett null, [employer] 01/01/2023 14:23:54 Hib (PRP-OMP) 5 completed Becca Pickett null, [employer] 01/01/2023 14:23:54 Hib (PRP-OMP) 5 completed Becca Pickett null, [employer] 01/01/2023 14:23:55 Hib (PRP-OMP) 4 completed Becca Pickett null, [employer] 01/01/2023 14:23:55 meningococcal MCV4P 7 completed Becca Pickett null, [employer] 01/01/2023 14:23:55 meningococcal MCV4P 0 completed Becca Cachorro null, [employer] [facility] 01/01/2023 14:23:55 DTaP, unspecified formulation 5 completed Becca Pickett null, [employer] 01/01/2023 14:23:55 DTaP, unspecified formulation 6 completed Becca Pickett null, [employer] 01/01/2023 14:23:55 DTaP, unspecified formulation 9 completed Becca Cachorro null, [employer] 01/01/2023 14:23:55 meningococcal MCV4, unspecified formulation 7 completed Becca Pickett null, [employer] 01/01/2023 14:23:55 DTaP-Hep B-IPV 5 completed Becca Pickett null, [employer] 01/01/2023 14:23:55 DTaP-Hep B-IPV 4 completed Becca Cachorro null, [employer] 01/01/2023 14:23:55 Influenza, split virus, quadrivalent, PF 8 completed Becca Cachorro null, [employer] 01/01/2023 14:23:55 Past Encounters Encounter ID Performer Location Encounter Start Date Encounter Closed Date Diagnosis/Indication Diagnosis SNOMED-CT Code Diagnosis ICD10 Code Diagnosis IMO Codes Diagnosis Note [id number] JERARDO Hahn [address] [address] 06/17/2025 16:23:00 06/17/2025 17:14:12 Dysuria 37670010 R30.0 32483 Snoring 14707566 R06.83 46328 Body mass index 40+ - severely obese 748420995 Z68.43 [id number] Controlled substance agreement signed today [id number] JERARDO Hahn [address] [address] 07/16/2025 11:26:23 07/16/2025 11:55:07 Body mass index 40+ - severely obese 187705903 Z68.43 [id number] Health Concerns Section Related Observation LastModified by Organization Detai ls LastModified Time None Recorded Concern Status LastModified by Organization Details LastModified Time None Recorded Payers Encounter Date Sequence Insurance Name Policy Number Policy Lovelace Covered Member ID Lovelace Member ID Guarantor Name 07/16/2025 1 [facility] (MEDICAID REPLACEMENT - HMO) [place] Daniel Velasquez [id number] Daniel Velasquez Notes Date Note Type Note Provider Name and Address Organization Details Recorded Time 07/16/2025 text/html ROS as noted in the HPI Patient presents for followup. Taking Adipex for weight loss. Has lost 15 pounds. Doing well. JERARDO Hahn [address] [place] [address], [address], [facility] [employer] 07/16/2025 12:54:20 OBGyn Episode No OBEpisode recorded.
[2025-08-07 11:06] LABS: Hematocrit 39.1 % (37.0-47.0); Hemoglobin 13.3 g/dL (12.2-16.2); Immature Granulocytes % 0.3 %; Mean Corpuscular HGB Conc 34.0 g/dL (31.8-35.4); Mean Corpuscular Hemoglobin 28.5 pg (27.0-31.2); Mean Corpuscular Volume 83.9 fl (81-99); Nucleated Red Blood Cells % 0 %; Platelet Count 219 K/mm3 (142-424); Red Blood Count 4.66 M/mm3 (4.20-5.40); Red Cell Distribution Width-SD 41.8 fL; White Blood Count 5.8 K/mm3 (4.8-10.8)
[2025-08-07 11:30] LABS: Alanine Aminotransferase 40 U/L (12-78); Albumin Level 3.4 g/dl (3.5-5.0); Albumin/Globulin Ratio 0.9 (1.1-1.8); Alkaline Phosphatase 73 U/L (38-126); Anion Gap 13.3 mEq/L (5-15); Aspartate Amino Transferase 25 U/L (14-36); Bilirubin,Total 1.9 mg/dl (0.2-1.3); Blood Urea Nitrogen 9 mg/dl (7-17); Calcium 8.8 mg/dl (8.4-10.2); Carbon Dioxide 24 mmol/L (22.0-30.0); Chloride 103 mmol/L (98-107); Cholesterol 131 mg/dl (140-200); Creatinine,Serum 0.50 mg/dl (0.52-1.04); Estimated Glomerular Filt Rate 156 ml/min (>60); GFR (African American) 188 ML/MIN (>60); Globulin 3.6 g/dL (1.3-3.2); Glucose 101 mg/dl (74-100); HDL Cholesterol 31 mg/dl (40-60); Potassium 4.3 mmoL/L (3.5-5.1); Sodium 136 mmol/L (136-145); Total Protein,Serum 7.0 g/dl (6.3-8.2); Triglycerides 105 mg/dl (30-150)
[2025-08-07 12:00] LABS: Thyroid Stimulating Hormone 1.10 uIU/mL (0.465-4.68)
[2025-08-07 12:47] LABS: Hemoglobin A1C 4.7 % (4.0-6.0)
[2025-08-09 12:16] LABS: FSH 5.3 mIU/mL (.); LH 6.0 mIU/mL (.); Testosterone,Total 31 ng/dL (13-71)
[2025-08-09 14:26] LABS: Insulin Level Total 17.6 uIU/mL (2.6-24.9)
== END 2025-08-07 23:59 | disposition home or self-care (01) ==
LOC: LAB 10:28
PROVIDERS: PCP Physician Assistant; Visit Provider Obstetrics & Gynecology
DX: Z34.90 Encounter for supervision of normal pregnancy, unspecified, unspecified trimester (principal); N92.6 Irregular menstruation, unspecified; Z3A.00 Weeks of gestation of pregnancy not specified; Z31.9 Encounter for procreative management, unspecified
CPT/HCPCS: 36415; 80053; 80061; 82166; 82670; 83001; 83002; 83036; 83525; 84144; 84403; 84443; 84702; 85025

== ENCOUNTER 2025-08-27 13:52 | Outpatient (CLI) | payer OTHER, SELFPAY ==
--- OUTSIDE RECORDS SUMMARY | 2025-08-27 13:54 | XMS_ITS | Clinical Summary ---
Author Organization [facility] Address [address] 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 5 Active ergocalciferol 1.25 MG (91122 UT) capsule Take 1 capsule by mouth [...] Active Active Problems No known active problems Immunizations Immunization Administration Dates Next Due DTaP [...] Health Maintenance Due Date Last Done Comments [facility]-Infant/Child/Adol SDOH Screenings 2004 [facility]- SDOH Screenings 2022 [facility]-Adult SDOH Screenings 2022 [id number] Vaccine (1 - season) 2025 [facility]-Influenza Vaccine (#1) 2025 09/15/2018 [...] Procedure Name Priority Date/Time Associated Diagnosis Comments HEPATITIS C ANTIBODY - ED W/REFLEX TO HCV QUANT PCR STAT 04/05/2024 11:52 PM EDT ED HIV 1/2 ANTIBODY/ANTIGEN SCREEN WITH REFLEX TO HIV I/II DIFFERENTIATION STAT 04/05/2024 11:52 PM EDT from Last 3 Months or Most Recently Relevant to Health Maintenance Results * ED HIV 1/2 Antibody/Antigen Screen w/Reflex to HIV 1/2 Differentiation (04/05/2024 11:52 PM EDT) HIV 1 & 2 Antibody/Antigen Screen Non Reactive Non Reactive 04/06/2024 12:55 AM EDT [facility] Comment:Screening for HIV 1 & 2 antibodies, and P24 antigen is NONREACTIVE. No confirmatory testing is required. Blood Venous blood specimen / Unknown Venipuncture / Unknown 04/05/2024 11:52 PM EDT 04/05/2024 11:55 PM EDT Ajith Leary MD LAB BLOOD ORDERABLES Final Re sult Performing Organization Address [facility] Co de Phone Number [facility] [address] [place] [address] * Hepatitis C Antibody - ED (04/05/2024 11:52 PM EDT) Hepatitis C Antibody Negative Negative 04/06/2024 12:55 AM EDT [facility] Blood Venous blood specimen / Unknown Venipuncture / Unknown 04/05/2024 11:52 PM EDT 04/05/2024 11:55 PM EDT Ajith Leary MD LAB BLOOD ORDERABLES Final Re sult Performing Organization Address City/[facility] Co de Phone Number [facility] [address] [place] [address] from Last 3 Months or Most Recently Relevant to Health Maintenance Insurance [facility] MEDICAID Advance Directives * Full Code (Latest Code Status on File) Date Activated Date Inactivated Comments 03/18/2025 9:00 AM 03/19/2025 12:01 AM Question Answer Comments I have reviewed the capacity from the link above and, if needed, have updated to appropriate status: Yes Care Teams 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
--- OUTSIDE RECORDS SUMMARY | 2025-08-27 13:54 | XMS_ITS | Continuity of Care Document ---
Author Organization [place] - [employer] Address [address] [place] [address] Assessment No assessment recorded. Plan of Treatment Reminders Order Date Submit Date Provider Last Modified By Organization Details Last Modified Time Details Appointments FOLLOW UP 30 2024 09:00A Abiola Cash PA-C Not available Not available Not available Lab None recorded . Referral None recorded . Procedures None recorded . Surgeries None recorded . Imaging None recorded . Medication Orders Adipex-P 37.5 mg tablet 2024 025 [id number], [address] , [place], [place], [id number], 07/16/2025 11:58:00 Patient TargetsNo targets recorded. Patient Instructions Encounter Date Encounter Id Patient Instructions Last Modified By Organization Details Last Modified Time 07/16/2025 [id number] body mass index: care instructions [email or web address] Not available 07/16/2025 11:57:51 learning about healthy weight [email or web address] Not available 07/16/2025 11:57:51 Reason for Referral None Reported. Results Created Date Observation Date Name Description Value Unit Range Abnormal Flag Note LastModifiedBy Organization Detail LastModifiedTime 06/17/2006/19/2025 URINE CULTU [place] urine culture, routine Final report Not Available [facility] ([facility]) [address] [facility], [place], [address], 06/19/2025 03:06:54 06/17/2006/19/2025 URINE CULTU [place] result 1 COMMEN T Mixed uroge nital renee Less than 10,00 0 colon ies/m L Not Available [facility] ([facility]) [address] [facility], [place], [address], 06/19/2025 03:06:54 06/17/2006/17/2025 urina lysis , dipst ick Leukocytes Negati ve Not Available [address], [place], [address], 06/17/2025 16:55:04 06/17/20 25 06/17/2025 urina lysis , dipst ick Nitrite negati ve Not Available [address], [place], [address], 06/17/2025 16:55:04 06/17/2006/17/2025 urina lysis , dipst ick Urobilinogen 1 Not Available [address], [place], [address], 06/17/2025 16:55:04 06/17/2006/17/2025 urina lysis , dipst ick Protein Negati ve Not Available [address], [place], [address], 06/17/2025 16:55:04 06/17/2006/17/2025 urina lysis , dipst ick pH 6.0 Not Available [address], [place], [address], 06/17/2025 16:55:04 06/17/2006/17/2025 urina lysis , dipst ick Blood Negati ve Not Available [address], [address], 06/17/2025 16:55:04 06/17/20 25 06/17/2025 urina lysis , dipst ick Specific [place] 1.025 Not Available [address], [place], [address], 06/17/2025 16:55:04 06/17/20 25 06/17/2025 urina lysis , dipst ick Ketone Negati ve Not Available [address], [place], [address], 06/17/2025 16:55:04 06/17/2006/17/2025 urina lysis , dipst ick Bilirubin Negati ve Not Available [address], [place], [address], 06/17/2025 16:55:04 06/17/2006/17/2025 urina lysis , dipst ick Glucose Negati ve Not Available [address], [place], [address], 06/17/2025 16:55:04 06/17/2006/17/2025 urina lysis , dipst ick Appearance Clear Not Available [address], [place], [address], 06/17/2025 16:55:04 06/17/2006/17/2025 urina lysis , dipst ick Color Yellow Not Available [address], [place], [address], 06/17/2025 16:55:04 06/30/20 25 06/30/2025 US, trans shemar al No observ ation record ed. [email or web address] [facility] [address], [place], [address], 07/01/2025 09:57:57 Result Notes None recorded. Problems Name Problem SNOMED Code Status Onset Date Resolution Date Notes Provider Name and Address Organization Details Recorded Time Dysuria 05846680 Completed 202301/15/2025 SALTY PINEDA NP [address] [place] [address], [address], [employer] 14:27:25 Vitamin D deficienc y 79787477 Active 2024 JERARDO Hahn [address] [place] [address], [address], [employer] 13:29:40 Ganglion cyst of right wrist 876574976554 109 Active 2024 JERARDO Hahn [address] [place] [address], [address] 8, [employer] 13:29:36 Abdominal bloating 597302129 Active 2024 SALTY PINEDA NP [address] [place] [address], [address] 8, [place] [employer] 14:08:32 Dysuria 35730633 Active 2024 SALTY PINEDA NP [address] [place] [address], [address] 8, [employer] 14:27:25 Acute suppurati ve otitis media without spontaneo us rupture of ear drum 60574390 Active 2024 JERARDO Hahn [address] [place] [address], [address] 8, [employer] 5 09:29:51 Acute cough Active 2024 JERARDO Hahn [address] [place] [address], [address] 8, [employer] 5 09:29:57 Sunburn of first degree 346781339 Active 2024 JERARDO Hahn [address] [place] [address], [address] 8, [employer] 5 09:30:01 Solar erythema 908424585 Active 2024 JERARDO Hahn [address] [place], [address], [employer] 5 09:30:02 Anxiety 24543353 Active 2024 JERARDO Hahn [address] [place] [address], [address] 8, [employer] 5 10:01:03 Snoring 56270813 Active 2024 JERARDO Hahn [address] [place] [address], [address] 8, [employer] 5 17:12:52 Polycysti c ovary syndrome 254934543 Active 2024 JERARDO Hahn [address] [place] [address], [address] 8, [employer] 5 13:36:47 Problem Notes None recorded. Procedures Surgical History Date Name Laterality Status Provider Name and Address Organization Details Recorded Time excision of ganglion cyst of wrist completed Yasmine Foley [employer] 02/10/2025 13:30:54 Imaging Results None recorded. [...] completed Not Available Not Available Not Available Adipex-P 37.5 mg tablet Take 1 tablet every day by oral route for 30 days. 2024 active Not Available Not Available Not Avai lable meloxicam 15 mg tablet TAKE 1 TABLET [...] completed Not Available Not Available Not Available ciprofloxa no 500 mg tablet TAKE [...] completed Not Available Not Available Not Available spironolac tone 25 mg tablet Take 1 tablet every day by oral route for 30 days. 2024 active Not Available Not Available Not Avai lable methocarba mol 750 mg tablet TAKE 2 [...] 500 mg tablet,ext ended release 24 hr Take 1 tablet every day by oral route for 30 days. 2024 active Not Available Not Available Not Avai lable amoxicilli n 875 mg-potassi um clavulanat e [...] weight Body temperature Heart rate Oxygen saturation Systolic And Diastolic Provider Name and Address Organization Details Last Updated DateTime 152.4 cm 53.8 kg/m2 542502 g 98.3 [degF] 90 /min 99 % 107/72 mm[Hg] Yasmine Foley [employer] 11:49:08 Social History Question Answer Notes LastModified by Organizat ion Details LastModified Time Tobacco Smoking Status Never Smoker Yasmine cortez [employer] 07/16/2025 11:45:07 Do You Have An Advance Directive? No Information n ot available 10/06/2024 Is Your Home Air Conditioned? Yes Information not available 02/18/2024 If You Are , What Was Your Level Of Alcohol Consumption Prior To ? None Information not available 10/06/2024 How Many Years Have You Consumed Alcohol? 3 Information not available 10/06/2024 Do You Wear A Helmet When Biking? No [email or web address] Information not available 05/26/2024 Are You Blind Or Do You Have Difficulty Seeing? No Information n ot available 02/18/2024 What Is Your Level Of Caffeine Consumption? None [email or web address] Information not available 07/16/2025 Are You A Caregiver? No Information not available 02/18/2024 What Type Of Electronic Security Specialist Do You Use? None Information not [...] Type Of Diet Are You Following? REGULAR [email or web address] Information n ot available 05/26/2024 What Is The Highest Grade Or Level Of School You Have Completed Or The Highest Degree You Have Received? [id number] Information not available 07/16/2025 Who Is Your [...] Brisk Walk, Jogging, Strength Training, Etc)? No [email or web address] Information not available 07/16/2025 How Many Times In The Past Year Have You Used An Illegal Drug Or Used A Prescription Medication For Nonmedical Reasons? 0 [email or web address] Information not available 07/16/2025 Where Do You Live? Apartment [email or web address] Inform ation not available 07/16/2025 Do You Have A Medical Power Of Career Development Engineer? No Information not available 10/06/2024 What Was The Date Of Your Most Recent Tobacco Screening? 08/23/2025 Information not available 08/23/2025 Are There Any Occupational Health Risks Where [...] When Driving Or As A Passenger? Yes [email or web address] Information not available 07/16/2025 Do You Use [...] Do You Participate In Social Media? Yes [email or web address] Information not available 05/26/2024 What Types Of Sporting Activities Do You Participate In? N/A [email or web address] Information not available 07/16/2025 Do You Use Sunscreen Routinely? No Information not available 10/06/2024 Has Tobacco Cessation Counseling Been Provided? Yes Information not available 02/18/2024 On What Date Was Tobacco Cessation Counseling Provided? 08/23/2025 Information not available 08/23/2025 How Many Years Have You Smoked Tobacco? 12 Information not available 10/06/2024 Have You Recently Traveled Abroad? No Information not available 02/18/2024 Do You Have Difficulty Walking Or Climbing Stairs? No Information not available 02/18/2024 Are You Currently In School? No Information not available 10/06/2024 What Contraceptive Method Was Reported At Start Of This Visit? None [email or web address] Information not available 07/16/2025 Do You Feel Safe In Your Home? Yes [email or web address] Information not available 07/16/2025 Do You Have Any Dietary Restrictions? No [email or web address] Information not available 05/26/2024 How Many Days In The Past Year Have You Consumed 4 Or More Drinks? 2 Information not available 10/06/2024 What Is Your Reason For Having No Contraceptive Method At Start Of This Visit? Same Sex Partner [email or web address] Information not available 07/16/2025 Sex: Unknown Functional Status Question Answer Note LastModified by [...] 02/18/2024 What is your exercise level? Occasional [email or web address] Information not available 05/26/2024 Do you use any illicit or recreational drugs? No Information not available 02/18/2024 Do you feel safe in your relationship? Yes Information not available 07/16/2025 Do you or [...] anxious, or unable to sleep at night)? [id number] Information not available 08/23/2025 Do you have difficulty concentrating, remembering or [...] Stones N Blood Diseases N Hyperthyroidism N Blood Transfusion N Breast Cancer N Emergency room visit since last appointm ent. N COPD N Depression N Dermatologic Disorders N Lung Disease N Hypothyroidism N Developmental or Behavioral Disorders N Defects or Inherited Disease N Breast Problem N Difficulty Swallowing N Anesthesia Complications N History of STI N Anxiety Disorder N Meniere's disease N Autoimmune disease N Muscle, Joint, or Bone Problems N Vision or Eye Problems N Arthritis N Infertility N Polyps N Mental Disorder N Congenital Anomalies N Acid Reflux (GERD) N Cancer N Stroke N Neurologic/Epilepsy N Endometriosis N Bladder or Kidney Problems N High Cholesterol N Liver Disease N Psychiatric/Mental Health Condition N Organ Transplant N Fibromyalgia N Headaches N Schizophrenia N Dialysis N Kidney Disease N Allergies/Hayfever N Heart [...] History Statement/Question Response Abnormal Pap N Flow Light Date of LMP 08/23/2025 On BCP's at Conception? N STIs/STDs N HPV Vaccine N Duration of Flow (days) 5 Most Recent Mammogram Current Control Method None Age at Menarche 12 Menses Monthly N Date of Last Pap Smear Sexual Problems? N LMP Definite Desired Control Method None Obstetrics History GPAL:G 0 P 0 0 0 0 Immunizations Vaccine Type Date Status Note Provider Nam e and Address Organization Details Recorded Time HPV9 7 completed Becca Cachorro null, [employer] 01/01/2023 14:23:54 HPV9 8 completed Becca Wilson null, [employer] 01/01/2023 14:23:54 IPV 5 completed Becca Cachorro null, [employer] 01/01/2023 14:23:54 IPV 9 completed Becca Wilson null, [employer] 01/01/2023 14:23:54 MMR 6 completed Becca Cachorro null, [employer] 01/01/2023 14:23:54 MMR 9 completed Becca Cachorro null, [employer] 01/01/2023 14:23:54 pneumococcal conjugate PCV 7 5 completed Becca Wilson null, [employer] 01/01/2023 14:23:54 pneumococcal conjugate PCV 7 6 completed Becca Cachorro null, [employer] 01/01/2023 14:23:54 pneumococcal conjugate PCV 7 5 completed Becca Wilson null, [employer] 01/01/2023 14:23:54 pneumococcal conjugate PCV 7 4 completed Becca Wilson null, [employer] 01/01/2023 14:23:54 Tdap 7 completed Becca Wilson null, [employer] 01/01/2023 14:23:54 varicella 9 completed Becca Cachorro null, [employer] 01/01/2023 14:23:54 varicella 5 completed Becca Wilson null, [employer] 01/01/2023 14:23:54 HBIG 4 completed Becca Wilson null, [employer] 01/01/2023 14:23:54 Hep B, adolescent or pediatric 4 completed Becca Wilson null, [employer] 01/01/2023 14:23:54 Hep A, ped/adol, 2 dose 9 completed Becca Cachorro null, [employer] 01/01/2023 14:23:54 Hep A, ped/adol, 2 dose 8 completed Becca Wilson null, [employer] 01/01/2023 14:23:54 Hib (PRP-OMP) 5 completed Becca Cachorro null, [employer] 01/01/2023 14:23:54 Hib (PRP-OMP) 5 completed Becca Cachorro null, [employer] 01/01/2023 14:23:55 Hib (PRP-OMP) 4 completed Becca Wilson null, [employer] 01/01/2023 14:23:55 meningococcal MCV4P 7 completed Becca Wilson null, [employer] 01/01/2023 14:23:55 meningococcal MCV4P 0 completed Becca Wilson null, [employer] 01/01/2023 14:23:55 DTaP, unspecified formulation 5 completed Becca Cachorro null, [employer] 01/01/2023 14:23:55 DTaP, unspecified formulation 6 completed Becca Cachorro null, [employer] 01/01/2023 14:23:55 DTaP, unspecified formulation 9 completed Becca Wilson null, [employer] 01/01/2023 14:23:55 meningococcal MCV4, unspecified formulation 7 completed Becca Cachorro null, [employer] 01/01/2023 14:23:55 DTaP-Hep B-IPV 5 completed Becca Wilson null, [employer] 01/01/2023 14:23:55 DTaP-Hep B-IPV 4 completed Becca Wilson null, [employer] 01/01/2023 14:23:55 Influenza, split virus, quadrivalent, PF 8 completed Becca Wilson null, [employer] 01/01/2023 14:23:55 Past Encounters Encounter ID Performer Location Encounter Start Date Encounter Closed Date Diagnosis/Indication Diagnosis SNOMED-CT Code Diagnosis ICD10 Code Diagnosis IMO Codes Diagnosis Note [id number] JERARDO Hahn [address] [address] 06/17/2025 16:23:00 06/17/2025 17:14:12 Dysuria 36291917 R30.0 69864 Snoring 76935366 R06.83 22776 Body mass index 40+ - severely obese 095647127 Z68.43 [id number] Controlled substance agreement signed today [id number] JERARDO Hahn [address] [address] 07/16/2025 11:26:23 07/16/2025 11:55:07 Body mass index 40+ - severely obese 383229222 Z68.43 [id number] Health Concerns Section Related Observation LastModified by Organization Detai ls LastModified Time None Recorded Concern Status LastModified by Organization Details LastModified Time None Recorded Payers Encounter Date Sequence Insurance Name Policy Number Policy Lovelace Covered Member ID Lovelace Member ID Guarantor Name 07/16/2025 1 [facility] Daniel Velasquez [id number] Daniel Velasquez Notes Date Note Type Note Provider Name and Address Organization Details Recorded Time 07/16/2025 text/html ROS as noted in the HPI Patient presents for followup. Taking Adipex for weight loss. Has lost 15 pounds. Doing well. JERARDO Hahn [address] [place] [address], [place], [address], [facility] [employer] 07/16/2025 12:54:20 OBGyn Episode No OBEpisode recorded.
--- OUTSIDE RECORDS SUMMARY | 2025-08-27 13:54 | XMS_ITS | Data Portability ---
Author Organization [facility]., [facility] - [facility] Address [address] [place] [address] Assessment No assessment recorded. Plan of Treatment Reminders Order Date Submit Date Provider Last Modified By Organization Details Last Modified Time Details Appointments FOLLOW UP 30 2024 09:00A Abiola Cash PA-C Not available Not available Not available Lab urinalysi s, dipstick [address], [address] Anders Jonathan Fraser [facility] ([facility] [place], [address], 06/17/2025 17:19:31 culture, urine 2024 025 [facility], [address] [place] [address], [address], 06/19/2025 03:06:54 Referral None recorded. Procedures None recorded. Surgeries None recorded. Imaging home sleep study [email or web address] Home Sleep Study (Verified Jul 28), [facility] [facility], [facility], [place], [address], 08/26/2025 09:43:33 Medication Orders Adipex-P 37.5 mg tablet 2024 025 [id number], [address], [place], [place], [id number], 08/23/2025 13:37:39 metformin ER 500 mg tablet,ex tended release 24 hr 2024 [facility]43864, [address] [place], [place], [id number], 08/23/2025 13:37:47 spironola ctone 25 mg tablet 2024 [facility] #45901, [address] [place], [place], [id number], 08/23/2025 13:37:45 Adipex-P 37.5 mg tablet 2024 [facility] #33462, [address] [place], [place], [id number], 07/16/2025 11:58:00 Adipex-P 37.5 mg tablet 2024 [facility], [address] [place] [address], [address], 06/17/2025 17:13:44 metformin ER 500 mg tablet,ex tended release 24 hr 2024 [facility], [address] [place] [address], [address], 07/16/2025 14:46:26 Wegovy 0.25 mg/0.5 mL subcutane ous pen injector 2024 [facility], [address] [place] [address], [address], 06/17/2025 17:07:37 metformin ER 500 mg tablet,ex tended release 24 hr [address] [facility], [address] [place] [address], [address], 07/16/2025 11:45:42 Patient TargetsNo targets recorded. Patient Instructions Encounter Date Encounter Id Patient Instructions Last Modified By Organization Details Last Modified Time 04/23/2025 [id number] body mass index: care instructions Not available 04/23/2025 08:38:20 learning about healthy weight [email or web address] Not available 04/23/2025 08:38:20 06/17/2025 [id number] body mass index: care instructions [email or web address] Not available 06/17/2025 17:13:38 learning about healthy weight [email or web address] Not available 06/17/2025 17:13:38 painful urinatio n (dysuria): care instructions [email or web address] Not available 06/17/2025 16:56:02 snoring: care instructions [email or web address] Not available 06/17/2025 17:13:39 07/16/2025 [id number] body mass index: care instructions [email or web address] Not available 07/16/2025 11:57:51 learning about healthy weight [email or web address] Not available 07/16/2025 11:57:51 Reason for Referral None Reported. Results Created Date Observation Date Name Description Value Unit Range Abnormal Flag Note LastModifiedBy Organization Detail LastModifiedTime 06/17/2006/19/2025 URINE CULTU READORE NE urine culture, routine Final report Not Available [facility] ([facility]) [address] [facility], [place], [address], 06/19/2025 03:06:54 06/17/2006/19/2025 URINE CULTU READORE NE result 1 COMMEN T Mixed uroge nital renee Less than 10,00 0 colon ies/m L Not Available [facility] ([facility]) [address] [facility], [place], [address], 06/19/2025 03:06:54 06/17/2006/17/2025 urina lysis , dipst ick Leukocytes Negati ve Not Available [facility] [address] [place], [address], 06/17/2025 16:55:04 06/17/2006/17/2025 urina lysis , dipst ick Nitrite negati ve Not Available [facility] [address] [place], [address], 06/17/2025 16:55:04 06/17/20 25 06/17/2025 urina lysis , dipst ick Urobilinogen 1 Not Available [address], [place], [address], 06/17/2025 16:55:04 06/17/20 25 06/17/2025 urina lysis , dipst ick Protein Negati ve Not Available [address], [place], [address], 06/17/2025 16:55:04 06/17/2006/17/2025 urina lysis , dipst ick pH 6.0 Not Available [address], [place], [address], 06/17/2025 16:55:04 06/17/20 25 06/17/2025 urina lysis , dipst ick Blood Negati ve Not Available [address], [place], [address], 06/17/2025 16:55:04 06/17/20 25 06/17/2025 urina lysis , dipst ick Specific [place] 1.025 Not Available [address], [place], [address], 06/17/2025 16:55:04 06/17/20 25 06/17/2025 urina lysis , dipst ick Ketone Negati ve Not Available [address], [address], 06/17/2025 16:55:04 06/17/20 25 06/17/2025 urina lysis , dipst ick Bilirubin Negati ve Not Available [address], [address], 06/17/2025 16:55:04 06/17/20 25 06/17/2025 urina lysis , dipst ick Glucose Negati ve Not Available [facility] [address] [place] [address], [place], [address], 06/17/2025 16:55:04 06/17/2006/17/2025 urina lysis , dipst ick Appearance Clear Not Available [facility] [address] [place] [address], [address], 06/17/2025 16:55:04 06/17/2006/17/2025 urina lysis , dipst ick Color Yellow Not Available [address], [address], 06/17/2025 16:55:04 06/30/2006/30/2025 US, trans vagin al No observ ation record ed. [email or web address] [facility] [address], [place], [address], 07/01/2025 09:57:57 Result Notes None recorded. Problems Name Problem SNOMED Code Status Onset Date Resolution Date Notes Provider Name and Address Organization Details Recorded Time Dysuria 38818077 Completed 202301/15/2025 SALTY PINEDA NP [address] [place] [address], [address], [facility] [employer] 5 14:27:25 Vitamin D deficienc y 01574774 Active 2024 JERARDO Hahn [address] [place] [address], [address], [facility] 13:29:40 Ganglion cyst of right wrist 659889330307 109 Active 2024 JERARDO Hahn [address] [place] [address], [address], [employer] 5 13:29:36 Abdominal bloating 762507243 Active 2024 SALTY PINEDA NP [address] [place] [address], [address], [employer] 5 14:08:32 Dysuria 37851665 Active 2024 SALTY PINEDA NP [address] [place] [address], [address], [employer] 5 14:27:25 Acute suppurati ve otitis media without spontaneo us rupture of ear drum 10710193 Active 2024 JERARDO Hahn [address] [place] [address], [address], [employer] 5 09:29:51 Acute cough Active 2024 JERARDO Hahn [address] [place] [address], [address], [employer] 5 09:29:57 Sunburn of first degree 079775617 Active 2024 JERARDO Hahn [address] [place] [address], [address], [employer] 5 09:30:01 Solar erythema 599879308 Active 2024 JERARDO Hahn [address] [place] [address], [address], [employer] 5 09:30:02 Anxiety 03476326 Active 2024 JERARDO Hahn [address] [place] [address], [address], [employer] 5 10:01:03 Snoring 93182409 Active 2024 JERARDO Hahn [address] [place] [address], [address], [employer] 5 17:12:52 Polycysti c ovary syndrome 241082259 Active 2024 JERARDO Hahn [address] [place], [address], [employer] 13:36:47 Problem Notes None recorded. Procedures Surgical History Date Name Laterality Status Provider Name and Address Organization Details Recorded Time excision of ganglion cyst of wrist completed Yasmine Foley [employer] 02/10/2025 13:30:54 Imaging Results None recorded. [...] (BMI) Body weight Heart rate Oxygen saturation Systolic And Diastolic Provider Name and Address Organization Details Last Updated DateTime 5 152.4 cm 99 % 56.9 kg/m2 069007. 48 g 97 /min 100 % 103/67 mm[Hg] Denise Dolan [employer] 08:29:30 Date Recorded Body height Body mass index (BMI) [Percentile] Per age and sex Body mass index (BMI) Body weight Oxygen saturation Heart rate Body temperature Systolic And Diastolic Provider Name and Address Organization Details Last Updated DateTime 152.4 cm 99 % 55.8 kg/m2 018207. 98 g 97 % 92 /min 98.2 [degF] 100/68 mm[Hg] [employer] 09:49:55 Date Recorded Body mass index (BMI) Body mass index (BMI) [Percentile] Per age and sex Body weight Heart rate Oxygen saturation Body temperature Systolic And Diastolic Provider Name and Address Organization Details Last Updated DateTime 5 56.7 kg/m2 99 % 282015. 59 g 94 /min 96 % 98.1 [degF] 108/63 mm[Hg] [employer] 17:04:27 Date Recorded Body height Provider Name an d Address Organization Details Last Updated DateTime 06/17/2025 152.4 cm [employer] [facility] 06/17/2025 16:55:11 Date Recorded Body height Body mass index (BMI) Body weight Body temperature Heart rate Oxygen saturation Systolic And Diastolic Provider Name and Address Organization Details Last Updated DateTime 5 152.4 cm 53.8 kg/m2 273182 g 98.3 [degF] 90 /min 99 % 107/72 mm[Hg] [employer] 5 11:49:08 Date Recorded Body height Body mass index (BMI) Body weight Body temperature Heart rate Oxygen saturation Systolic And Diastolic Provider Name and Address Organization Details Last Updated DateTime 5 152.4 cm 51.8 kg/m2 686659. 7 g 98.7 [degF] 84 /min 98 % 126/82 mm[Hg] Argelia Montoya [employer] 5 13:22:36 Social History Question Answer Notes LastModified by Organizat ion Details LastModified Time Tobacco Smoking Status Never Smoker Yasmine cortez [employer] 07/16/2025 11:45:07 Do You Have An Advance Directive? No Information n ot available 10/06/2024 Is Your Home Air Conditioned? Yes Information not available 02/18/2024 If You Are , What Was Your Level Of Alcohol Consumption Prior To ? None Information not available 10/06/2024 How Many Years Have You Consumed Alcohol? 3 Information not available 10/06/2024 Do You Wear A Helmet When Biking? No [email or web address] Information not available 05/26/2024 Are You Blind Or Do You Have Difficulty Seeing? No Information n ot available 02/18/2024 What Is Your Level Of Caffeine Consumption? None Information not available 07/16/2025 Are You A Caregiver? No Information not available 02/18/2024 What Type Of Dietary Aide Cook Do You Use? None Information not available [...] Or The Highest Degree You Have Received? [id number] [email or web address] Information not available 07/16/2025 Who Is Your [...] Brisk Walk, Jogging, Strength Training, Etc)? No [email or web address] Information not available 07/16/2025 How Many Times In The Past Year Have You Used An Illegal Drug Or Used A Prescription Medication For Nonmedical Reasons? 0 Information not available 07/16/2025 Where Do You Live? Apartment [email or web address] Inform ation not available 07/16/2025 Do You Have A Medical Power Of Song Plugger? No Information not available 10/06/2024 What Was [...] When Driving Or As A Passenger? Yes [email or web address] Information not available 07/16/2025 Do You Use [...] Do You Participate In Social Media? Yes [email or web address] Information not available 05/26/2024 What Types Of Sporting Activities Do You Participate In? N/A [email or web address] Information not available 07/16/2025 Do You Use [...] You Feel Safe In Your Home? Yes [email or web address] Information not available 07/16/2025 Do You Have Any Dietary Restrictions? No [email or web address] Information not available 05/26/2024 How Many Days In The Past Year Have You Consumed 4 Or More Drinks? 2 Information not available 10/06/2024 What Is Your Reason For Having No Contraceptive Method At Start Of This Visit? Same Sex Partner Information not available 07/16/2025 Sex: Unknown Functional [...] you feel safe in your relationship? Yes [email or web address] Information not available 07/16/2025 Do you or [...] anxious, or unable to sleep at night)? [id number] Information not available 08/23/2025 Do you have [...] Details Recorded Time HPV9 7 completed Becca cortez [employer] 01/01/2023 14:23:54 HPV9 8 completed Becca cortez [employer] 01/01/2023 14:23:54 IPV 5 completed Becca Cachorro null, [employer] 01/01/2023 14:23:54 IPV 9 completed Becca Skagit null, [facility] [employer] 01/01/2023 14:23:54 MMR 6 completed Becca Skagit null, [facility] [employer] 01/01/2023 14:23:54 MMR 9 completed Becca Cachorro null, [facility] [employer] 01/01/2023 14:23:54 pneumococcal conjugate PCV 7 5 completed Becca Skagit null, [employer] 01/01/2023 14:23:54 pneumococcal conjugate PCV 7 6 completed Becca Skagit null, [employer] 01/01/2023 14:23:54 pneumococcal conjugate PCV 7 5 completed Becca Cachorro null, [employer] 01/01/2023 14:23:54 pneumococcal conjugate PCV 7 4 completed Becca Skagit null, [employer] 01/01/2023 14:23:54 Tdap 7 completed Becca Skagit null, [employer] 01/01/2023 14:23:54 varicella 9 completed Becca Skagit null, [employer] 01/01/2023 14:23:54 varicella 5 completed Becca Skagit null, [employer] 01/01/2023 14:23:54 HBIG 4 completed Becca Cachorro null, [employer] 01/01/2023 14:23:54 Hep B, adolescent or pediatric 4 completed Becca Skagit null, [employer] 01/01/2023 14:23:54 Hep A, ped/adol, 2 dose 9 completed Becca Skagit null, [employer] 01/01/2023 14:23:54 Hep A, ped/adol, 2 dose 8 completed Becca Skagit null, [employer] 01/01/2023 14:23:54 Hib (PRP-OMP) 5 completed Becca Cachorro null, [employer] 01/01/2023 14:23:54 Hib (PRP-OMP) 5 completed Becca Skagit null, [employer] 01/01/2023 14:23:55 Hib (PRP-OMP) 4 completed Becca Cachorro null, [employer] 01/01/2023 14:23:55 meningococcal MCV4P 7 completed Becca Skagit null, [employer] 01/01/2023 14:23:55 meningococcal MCV4P 0 completed Becca Skagit null, [employer] 01/01/2023 14:23:55 DTaP, unspecified formulation 5 completed Becca Skagit null, [employer] 01/01/2023 14:23:55 DTaP, unspecified formulation 6 completed Becca Skagit null, [employer] 01/01/2023 14:23:55 DTaP, unspecified formulation 9 completed Becca Skagit null, [employer] 01/01/2023 14:23:55 meningococcal MCV4, unspecified formulation 7 completed Becca Skagit null, [employer] 01/01/2023 14:23:55 DTaP-Hep B-IPV 5 completed Becca Skagit null, [employer] 01/01/2023 14:23:55 DTaP-Hep B-IPV 4 completed Becca cortez, [facility] 01/01/2023 14:23:55 Influenza, split virus, quadrivalent, PF 8 completed Becca cortez, [facility] 01/01/2023 14:23:55 Past Encounters Encounter ID Performer Location Encounter Start Date Encounter Closed Date Diagnosis/Indication Diagnosis SNOMED-CT Code Diagnosis ICD10 Code Diagnosis IMO Codes Diagnosis Note [id number] [place] [address] 01/01/2023 13:45:54 01/01/2023 14:49:34 Insomnia 068227088 G47.00 Depressive disorder 3548 9007 F32.A Fatigue 16757376 R53.83 Body mass index 30+ - obesity 293620028 Z68.42 [id number] [place] [address] 02/18/2024 10:36:30 02/18/2024 11:34:19 Fatigue 94441273 R53.83 Hyperglycemia 29433430 R 73.9 Hyperlipidemia 54988671 E78.5 Vitamin D deficiency 347 97284 E55.9 Iron defic iency anemia 06029543 D50.9 Moderate r ecurrent major depression 14671502 F33.1 Body mass index 40+ - severely obese 416444326 Z68.41 [id number] [place] [address] 0 03/13/2024 09:25:39 03/13/2024 10:09:36 Acute mesenteric adenitis 17523730 I88.0 Colitis 84748213 K52.9 Nicotine dependence 5629 4008 F17.200 Body mass index 40+ - severely obese 868475995 Z68.41 [id number] [place] [address] 03/20/2024 16:20:40 03/20/2024 16:44:37 Moderate recurrent major depression 17119753 F33.1 Uses depot contraception 448839112 Z30.013 Body mass index 40+ - severely obese 690847258 Z68.41 [id number] Marcella Cash [place] [id number] 04/06/2024 15:07:39 04/06/2024 15:45:10 Dysuria 54241553 R30.0 Acute urin antonio tract infection 730794911 N39.0 Body mass index 40+ - severely obese 914578637 Z68.41 [id number] [place] [address] 05/26/2024 14:55:04 05/26/2024 16:15:29 Urinary symptoms 248729391 R39.9 Acute urin antonio tract infection 310370829 N39.0 Body mass index 40+ - severely obese 617275865 Z68.41 [id number] Heena Cash [address] [address] 10/06/2024 09:21:33 10/06/2024 10:00:49 Adult health examination 385986852 Z00.00 HIV screening 688555956 Z11.4 Hepatitis C screening 41 8461359 Z11.59 Body mass index 40+ - severely obese 493782979 Z68.43 [id number] Heena Cash [address] [address] 01/15/2025 12:58:38 01/15/2025 13:33:40 Ganglion cyst of right wrist 6606939479 27090 M67.431 cleared for surgical interventi on Depressive disorder 3548 9007 F33.1 Body mass index 40+ - severely obese 515881417 Z68.42 Vitamin D deficiency 347 26086 E55.9 [id number] SALTY PINEDA NP [address] [address] 02/10/2025 13:12:57 02/10/2025 14:05:36 Dysuria 69650965 R30.0 17157 Abdominal bloating 73138 9008 R14.0 [id number] OTC simethicon e as directed on package. [id number] JERARDO Hahn [address] [address] 03/12/2025 09:02:03 03/12/2025 09:29:42 Acute suppurative otitis media without spontaneous rupture of ear drum 87042082 H66.001 6895124071 Acute cough 0381642212 88024868 R05.9 2982430714 Solar erythema 665341785 L55.9 027 [id number] JERARDO Hahn [address] [address] 04/23/2025 08:15:13 04/23/2025 08:38:20 Body mass index 40+ - severely obese 830845768 Z68.43 [id number] Encouraged 20 minutes of exercise a dayWill start counting/l ogging calories and bring to next appointmen t [id number] JERARDO Hahn [address] [address] 06/04/2025 09:42:24 06/04/2025 10:04:11 Body mass index 40+ - severely obese 267568926 Z68.43 Anxiety 08973374 F41.9 34197 [id number] JERARDO Hahn [address] [address] 06/17/2025 16:23:00 06/17/2025 17:14:12 Dysuria 91452155 R30.0 00325 Snoring 86973845 R06.83 42569 Body mass index 40+ - severely obese 047630474 Z68.43 [id number] Controlled substance agreement signed today [id number] JERARDO Hahn [address] [address] 07/16/2025 11:26:23 07/16/2025 11:55:07 Body mass index 40+ - severely obese 639306396 Z68.43 [id number] [id number] JERARDO Hahn [address] [address] 08/23/2025 13:10:01 08/23/2025 13:42:23 Body mass index 40+ - severely obese 286234623 Z68.43 Polycystic ovary syndrome 813324011 E28.2 [id number] Health Concerns Section Related Observation LastModified by Organization Detai ls LastModified Time None Recorded Concern Status LastModified by Organization Details LastModified Time None Recorded Advance Directives Directive N: Payers Insurance Date Sequence Insurance Name Policy Number Policy Lovelace Covered Member ID Lovelace Member ID Guarantor Name 08/20/2025 1 [facility] (MEDICAID REPLACEMENT - HMO) [id number] Daniel Velasquez [id number] Daniel Velasquez 08/08/2023 1 UNSPECIFIED REMIT PAYOR Daniel Velasquez 02/18/2024 1 *SELF PAY* Honey fernandes Eva Notes Date Note Type Note Provider Name and Address Organization Details Recorded Time 04/23/2025 text/html ROS as noted in the HPI Patient presents to discuss options for weight loss.States she has been trying to lose weight. Has been trying to exercise. She is not counting calories. JERARDO Hahn [address] [place], [address], [employer] 04/23/2025 09:24:25 06/04/2025 text/html ROS as noted in the HPI Patient presents for followup. SHe is trying to lose weight. SHe has quit drinking pop. She has lost 6 pounds.Needs a letter for an emotional support animal for her cats due to her anxiety and depression. JERARDO Hahn [address] [place], [address], [employer] 06/04/2025 11:25:49 06/17/2025 text/html ROS as noted in the HPI Patient would like to try something different for weight loss. Wegovy was very expensive.She states she snores and is tired all the timeDYsuria X 3 days. No nausea/vomiting. No fever. JERARDO Hahn [address] [place], [address], [employer] 06/18/2025 17:01:09 07/16/2025 text/html ROS as noted in the [facility] Patient presents for followup. Taking Adipex for weight loss. Has lost 15 pounds. Doing well. JERARDO Hahn [address] [place] [address], [address], [employer] 07/16/2025 12:54:20 08/23/2025 text/html ROS as noted in the [facility] Patient presents for followup. Taking Adipex for weight loss. Has lost 10 pounds.Recently diagnosed with PCOS by PATIENT MONITOR. JERARDO Hahn [address] [place] [address], [address], [employer] 08/23/2025 15:39:31 OBGyn Episode No OBEpisode recorded.
--- OUTSIDE RECORDS SUMMARY | 2025-08-27 13:54 | XMS_ITS | Continuity of Care Document ---
Author Organization [place] - [employer] [facility] Address [address] [place] [address] Assessment No assessment recorded. Plan of Treatment Reminders Order Date Submit Date Provider Last Modified By Organization Details Last Modified Time Details Appointments FOLLOW UP 2024 09:00A Abiola Cash PA-C Not available Not available Not available Lab None recorded. Referral None recorded. Procedures None recorded. Surgeries None recorded. Imaging None recorded. Medication Orders Adipex-P 37.5 mg tablet 2024 [id number], [address] [place], [place], [id number], 08/23/2025 13:37:39 metformin ER 500 mg tablet,ex tended release 24 hr 2024 025 [facility], [address] [place], [place], [phone], 08/23/2025 13:37:47 spironola ctone 25 mg tablet 2024 025 [id number], [address] [place], [place], [id number], 08/23/2025 13:37:45 Patient TargetsNo targets recorded. Patient InstructionsNo instructions recorded. Reason for Referral None Reported. Results Created Date Observation Date Name Description Value Unit Range Abnormal Flag Note LastModifiedBy Organization Detail LastModifiedTime Result Notes None recorded. Problems Name Problem SNOMED Code Status Onset Date Resolution Date Notes Provider Name and Address Organization Details Recorded Time Dysuria 03764090 Completed 202301/15/2025 SALTY PINEDA NP [address] [place] [address], [address] 8, [employer] 14:27:25 Vitamin D deficienc y 42594248 Active 2024 JERARDO Hahn [address] [place] [address], 43511-969 8, [place] [employer] 5 13:29:40 Ganglion cyst of right wrist 451624508596 109 Active 2024 JERARDO Hahn [address] [place] [address], 22198-949 8, [employer] 13:29:36 Abdominal bloating 418987222 Active 2024 SALTY PINEDA NP [address] [place] [address], 28156-090 8, [employer] 14:08:32 Dysuria 95470040 Active 2024 SALTY PINEDA NP [address] [place] [address], 02423-132 8, [employer] 14:27:25 Acute suppurati ve otitis media without spontaneo us rupture of ear drum 35831249 Active 2024 JERARDO Hahn [address] [place] [address], 98831-465 8, [employer] 5 09:29:51 Acute cough Active 2024 JERARDO Hahn [address] [place] [address], 21689-681 8, [employer] 5 09:29:57 Sunburn of first degree 271000734 Active 2024 JERARDO Hahn [address] [place] [address], 52173[address]990 8, [employer] 5 09:30:01 Solar erythema 259938431 Active 2024 JERARDO Hahn [address] [place] [address], 40804-358 8, [employer] 5 09:30:02 Anxiety 38651391 Active 2024 JERARDO Hahn [address] [place] [address], 37097-813 8, [employer] 5 10:01:03 Snoring 62053559 Active 2024 JERARDO Hahn [address] [place] [address], 77239-204 8, [employer] 5 17:12:52 Polycysti c ovary syndrome 523683682 Active 2024 JERARDO Hahn [address] [place] [address], 96146-832 8, [employer] 5 13:36:47 Problem Notes None recorded. Procedures Surgical History Date Name Laterality Status Provider Name and Address Organization Details Recorded Time excision of ganglion cyst of wrist completed Yasmine Foley [employer] 02/10/2025 13:30:54 Imaging Results None recorded. [...] Updated DateTime 5 152.4 cm 51.8 kg/m2 602502. 7 g 98.7 [degF] 84 /min 98 % 126/82 mm[Hg] Argeliaisael Montoya [employer] 5 13:22:36 Social History Question Answer Notes LastModified by Organizat ion Details LastModified Time Tobacco Smoking Status Never Smoker Yasmine cortez [employer] 07/16/2025 11:45:07 Do You Have An [...] You Wear A Helmet When Biking? No [email or web address] Information not available 05/26/2024 Are You Blind Or Do You Have Difficulty Seeing? No Information n ot available 02/18/2024 What Is Your Level Of Caffeine Consumption? None [email or web address] Information not available 07/16/2025 Are You A Caregiver? No Information not available 02/18/2024 What Type Of New Patient Escort Do You Use? None Information not available [...] Type Of Diet Are You Following? REGULAR [email or web address] Information n ot available 05/26/2024 What Is The Highest Grade Or Level Of School You Have Completed Or The Highest Degree You Have Received? [id number] Information not available 07/16/2025 Who Is Your [...] Brisk Walk, Jogging, Strength Training, Etc)? No Information not available 07/16/2025 How Many Times In The Past Year Have You Used An Illegal Drug Or Used A Prescription Medication For Nonmedical Reasons? 0 [email or web address] Information not available 07/16/2025 Where Do You Live? Apartment [email or web address] Inform ation not available 07/16/2025 Do You Have A Medical Power Of Steel Turner? No Information not available 10/06/2024 What Was [...] When Driving Or As A Passenger? Yes [email or web address] Information not available 07/16/2025 Do You Use [...] Do You Participate In Social Media? Yes [email or web address] Information not available 05/26/2024 What Types Of Sporting Activities Do You Participate In? N/A [email or web address] Information not available 07/16/2025 Do You Use [...] Reported At Start Of This Visit? None [email or web address] Information not available 07/16/2025 Do You Feel Safe In Your Home? Yes [email or web address] Information not available 07/16/2025 Do You Have Any Dietary Restrictions? No [email or web address] Information not available 05/26/2024 How Many Days In The Past Year Have You Consumed 4 Or More Drinks? 2 Information not available 10/06/2024 What Is Your Reason For Having No Contraceptive Method At Start Of This Visit? Same Sex Partner [email or web address] Information not available 07/16/2025 Sex: Unknown Functional [...] 02/18/2024 What is your exercise level? Occasional [email or web address] Information not available 05/26/2024 Do you use any illicit or recreational drugs? No Information not available 02/18/2024 Do you feel safe in your relationship? Yes [email or web address] Information not available 07/16/2025 Do you or [...] anxious, or unable to sleep at night)? [id number] Information not available 08/23/2025 Do you have [...] Details Recorded Time HPV9 7 completed Becca Young null, [employer] 01/01/2023 14:23:54 HPV9 8 completed Becca Young null, [employer] 01/01/2023 14:23:54 IPV 5 completed Becca Young null, [employer] 01/01/2023 14:23:54 IPV 9 completed Becca Young null, [employer] 01/01/2023 14:23:54 MMR 6 completed Becca Young null, [employer] 01/01/2023 14:23:54 MMR 9 completed Becca Young null, [employer] 01/01/2023 14:23:54 pneumococcal conjugate PCV 7 5 completed Becca Cachorro null, [employer] 01/01/2023 14:23:54 pneumococcal conjugate PCV 7 6 completed Becca Young null, [employer] 01/01/2023 14:23:54 pneumococcal conjugate PCV 7 5 completed Becca Cachorro null, [employer] 01/01/2023 14:23:54 pneumococcal conjugate PCV 7 4 completed Becca Cachorro null, [employer] 01/01/2023 14:23:54 Tdap 7 completed Becca Young null, [employer] 01/01/2023 14:23:54 varicella 9 completed Becca Young null, [employer] 01/01/2023 14:23:54 varicella 5 completed Becca Cachorro null, [employer] 01/01/2023 14:23:54 HBIG 4 completed Becca Cachorro null, [employer] 01/01/2023 14:23:54 Hep B, adolescent or pediatric 4 completed Becca Young null, [employer] 01/01/2023 14:23:54 Hep A, ped/adol, 2 dose 9 completed Becca Young null, [employer] 01/01/2023 14:23:54 Hep A, ped/adol, 2 dose 8 completed Becca Cachorro null, [employer] 01/01/2023 14:23:54 Hib (PRP-OMP) 5 completed Becca Young null, [employer] 01/01/2023 14:23:54 Hib (PRP-OMP) 5 completed Becca Young null, [employer] 01/01/2023 14:23:55 Hib (PRP-OMP) 4 completed Becca Cachorro null, [employer] 01/01/2023 14:23:55 meningococcal MCV4P 7 completed Becca Cachorro null, [employer] 01/01/2023 14:23:55 meningococcal MCV4P 0 completed Becca Young null, [employer] 01/01/2023 14:23:55 DTaP, unspecified formulation 5 completed Becca Young null, [employer] 01/01/2023 14:23:55 DTaP, unspecified formulation 6 completed Becca Young null, [employer] 01/01/2023 14:23:55 DTaP, unspecified formulation 9 completed Becca Young null, [employer] 01/01/2023 14:23:55 meningococcal MCV4, unspecified formulation 7 completed Becca Young null, [employer] 01/01/2023 14:23:55 DTaP-Hep B-IPV 5 completed Becca Young null, [employer] 01/01/2023 14:23:55 DTaP-Hep B-IPV 4 completed Sanguinechie null, [employer] 01/01/2023 14:23:55 Influenza, split virus, quadrivalent, PF 8 completed Becca Young null, [employer] 01/01/2023 14:23:55 Past Encounters Encounter ID Performer Location Encounter Start Date Encounter Closed Date Diagnosis/Indication Diagnosis SNOMED-CT Code Diagnosis ICD10 Code Diagnosis IMO Codes Diagnosis Note [id number] JERARDO Hahn [facility] [address] [place] [address] 08/23/2025 13:10:01 08/23/2025 13:42:23 Body mass index 40+ - severely obese 855595431 Z68.43 Polycystic ovary syndrome 469600470 E28.2 [id number] Health Concerns Section Related Observation LastModified by Organization Detai ls LastModified Time None Recorded Concern Status LastModified by Organization Details LastModified Time None Recorded Payers Encounter Date Sequence Insurance Name Policy Number Policy Lovelace Covered Member ID Lovelace Member ID Guarantor Name 08/23/2025 1 [facility] (MEDICAID REPLACEMENT - HMO) [id number] Daniel Velasquez [id number] Daniel Velasquez Notes Date Note Type Note Provider Name and Address Organization Details Recorded Time 08/23/2025 text/html ROS as noted in the HPI Patient presents for followup. Taking Adipex for weight loss. Has lost 10 pounds.Recently diagnosed with PCOS by [facility]. JERARDO Hahn [address] [place] [address], [phone], [facility] [email or web address] 08/23/2025 15:39:31 OBGyn Episode No OBEpisode recorded.
--- NOTE | 2025-08-27 14:00 | US_ITS ---
PROCEDURE: US TRANSVAGINAL CLINICAL INDICATION: right ovarian cyst COMPARISON: CT CT ABDOMEN PELVIS W CON from 03/11/2024 US US TRANSVAGINAL from 06/30/2025 FINDINGS: Transvaginal sonographic images of the pelvis were obtained. UTERUS: 5.4cm x 3.3cmx 2.5 cm anteverted with a combined endometrial thickness of 3.3mm. LEFT OVARY: 8sfm6qss1.2cm with a volume of 8.8ml. There are multiple small peripheral follicles giving the ovary a polycystic appearance. There is a dominant follicle 1.8 cm x 1.4 cm x 1.6 cm. RIGHT OVARY: 4cmx 0hnp3me with a volume of 15.6ml. There are multiple small peripheral follicles giving the ovary a polycystic appearance. There is a dominant follicle measuring 1.9 cm x 1.8 cm x 2.0 cm. The previously described 4.6 cm cyst on the right ovary has now resolved. Both ovaries are seen and appear normal. Doppler flow to both ovaries are seen. There is no fluid in the cul-de-sac. IMPRESSION: 1. Anteverted small uterus. The endometrium is thin measuring 3.3 mm. 2. Both ovaries are seen and appear polycystic. Both contain a dominant follicle. The previously described 4.6 cm cyst in the right ovary has now resolved. 3. No fluid in the cul-de-sac. Dictated by: Carlos Fletcher MD 08/28/2025 08:28 Carlos Fletcher MD in [place] 08/28/2025 08:28
== END 2025-08-27 23:59 | disposition home or self-care (01) ==
LOC: RAD 13:52
PROVIDERS: PCP Physician Assistant; Visit Provider Obstetrics & Gynecology
DX: E28.2 Polycystic ovarian syndrome (principal); N85.4 Malposition of uterus
CPT/HCPCS: 76830